=== PATIENT | female | born 1955 | race African-American/Black ===

== ENCOUNTER 2017-03-21 16:58 | Emergency (ER) | payer OTHER ==
[2017-03-21 17:08] VITALS: BMI 22.9
--- NOTE | 2017-03-21 17:48 | PDOC ---
Attending Attestation - Resident Resident Name: Tyrell Richardson - ED Attending Attestation I have performed the following: I have examined & evaluated the patient, The case was reviewed & discussed with the resident, I agree w/resident's findings & plan, Exceptions are as noted - HPI HPI: 03/21/17 17:48 61y F hx of htn (not on meds), cad s/o CABG on ASA, presents with epigastric pain x 2 days. Pt states the pain is sharp, intermittent and comes randomly. The pain is worse on the R upper abdome under her breast, denies any exertional worsening, sob, cough, hemoptysis, leg swelling, palpitatosn, lightheadedness, fever/chills, numbness/tingling/weakness. The pain is non radiating. I agre with exam as documented by dr. richardson - but cardiopulmonary exam unremarkble. The pt has point tenderness to her R costal margni under her R breast that is exactly reproducible by palpation. I do not think this is cadiac i nature. Pts labs reviewed pts vitals ntoed for hypertension - she staets she has not taken her bp meds for several years due to copay problems. I will give the pt her lisinopril ( which she was on previously)- but willr efer the pt back to her PMD to adjust her medications. return precautions were discussed - Physicial Exam PE: 03/21/17 19:48 see above - Medical Decision Making 03/21/17 19:48 see above
[2017-03-21] MEDS ORDERED: IBUPROFEN 600 MG TABLET (FP) PO ONE ×2 (18:14→18:41)
--- NOTE | 2017-03-21 18:15 | PDOC ---
History of Present Illness - General History Source: Patient Exam Limitations: No Limitations <Tyrell Richardson - Last Filed: 03/21/17 18:42> <Tono Hunter - Last Filed: 03/21/17 19:49> - General Chief Complaint: Chest Pain Stated Complaint: CHEST PAIN Time Seen by Provider: 03/21/17 17:25 - History of Present Illness Initial Comments: 03/21/17 18:42 The patient is a 60 year old female with significant past medical history of MN , CAD, s/p cardiac stents x2, hypertension, and hyperlipidemia who presents to the ED with 2 days of right sternal border chest pain. She describes her chest pain as non-radiating and 7/10. Also complains of headaches. Pain is increased during inspiration and sitting up from laying down. Patient denies diaphoresis, SOB, jaw pain, shoulder pain, arm pain, nausea, and vomiting. She states taking 2 81mg aspirin prior to arrival. She admits to not taking her lisinopril. It is notable that the patient presented with the exact same symptoms last year. Hasn't seen her pcp in 2 years, claims that when she took her blood pressure yesterday it was 230/100, and that she has had higher bp in the past The patient denies fever, chills, cough, palpitations, abdominal pain, and diarrhea. Allergies: NKDA Social History: No alcohol, tobacco, or drug use reported. Past Surgical History: s/p cardiac stents x2 03/21/17 18:53 (Tyrell Richardson) Past History - Past Medical History Cardiac Disorders: Yes (mi/stent) COPD: No HTN: Yes Hypercholesterolemia: Yes - Surgical History Cardiac Surgery: Yes (card stent x1) - Immunization History Immunization Up to Date: Yes - Suicide/Smoking/Psychosocial Hx Smoking Status: Yes Smoking History: Current every day smoker Have you smoked in the past 12 months: Yes Number of Cigarettes Smoked Daily: 3 Information on smoking cessation initiated: Yes 'Breaking Loose' booklet given: 03/21/17 Hx Alcohol Use: No Drug/Substance Use Hx: No Substance Use Type: None <Tyrell Richardson - Last Filed: 03/21/17 18:42> <Tono Hunter - Last Filed: 03/21/17 19:49> - Past Medical History Allergies/Adverse Reactions: Allergies Allergy/AdvReac Type Severity Reaction Status Date / Time No Known Allergies Allergy Verified 03/21/17 17:08 Home Medications: Ambulatory Orders Aspirin [ASA -] 81 mg PO DAILY 08/06/15 Lisinopril [Prinivil] 20 mg PO DAILY #30 tablet 03/21/17 Review of Systems - Review of Systems Able to Perform ROS?: Yes Is the patient limited Thai proficient: No Constitutional: No: Symptoms Reported, Chills, Diaphoresis, Fever, Loss of Appetite HEENTM: No: Symptoms Reported, Blurred Vision, Tearing, Recent change in vision , Double Vision Respiratory: No: Shortness of Breath, SOB with Exertion, SOB at Rest, Wheezing Cardiac (ROS): Yes: Chest Pain. No: Irregular Heart Rate, Lightheadedness, Palpitations, Syncope, Chest Tightness ABD/GI: No: Symptoms Reported : No: Symptoms Reported Musculoskeletal: No: Symptoms Reported Integumentary: No: Symptoms Reported Neurological: No: Symptoms reported All Other Systems: Reviewed and Negative <Tyrell Richardson - Last Filed: 03/21/17 18:42> *Physical Exam - Physical Exam General Appearance: Yes: Nourished, Appropriately Dressed. No: Apparent Distress HEENT: positive: EOMI, JORDAN Neck: negative: Tender Respiratory/Chest: positive: Chest Tender, Lungs Clear, Normal Breath Sounds. negative: Respiratory Distress, Plerual Rub Cardiovascular: positive: Regular Rhythm, Regular Rate, S1, S2 Gastrointestinal/Abdominal: positive: Normal Bowel Sounds, Flat. negative: Tender, Soft, Organomegaly Neurologic: positive: Fully Oriented, Alert, Normal Mood/Affect, Normal Response <Tyrell Richardson - Last Filed: 03/21/17 18:42> - Vital Signs Last Vital Signs Temp Pulse Resp BP Pulse Ox 98.1 F 78 20 182/107 100 03/21/17 19:43 03/21/17 19:43 03/21/17 19:43 03/21/17 19:43 03/21/17 19:43 ED Treatment Course - LABORATORY CBC & Chemistry Diagram: 03/21/17 18:38 03/21/17 18:38 <Tyrell Richardson - Last Filed: 03/21/17 18:42> - LABORATORY CBC & Chemistry Diagram: 03/21/17 18:38 03/21/17 18:38 <Tono Hunter - Last Filed: 03/21/17 19:49> - ADDITIONAL ORDERS Additional order review: Laboratory Results 03/21/17 03/21/17 18:38 18:38 Sodium 141 Potassium 3.9 Chloride 109 H Carbon Dioxide 27 Anion Gap 5 L BUN 15 Creatinine 1.1 H Creat Clearance w eGFR 50.67 Random Glucose 87 Calcium 9.0 Total Bilirubin 0.5 D AST 11 L ALT 12 Alkaline Phosphatase 99 Creatine Kinase 85 Troponin I < 0.02 Total Protein 8.1 Albumin 3.6 03/21/17 18:38 RBC 4.42 MCV 92.1 MCHC 33.7 RDW 14.1 MPV 7.1 L Neutrophils % 47.7 Lymphocytes % 41.7 H Monocytes % 7.8 Eosinophils % 2.0 Basophils % 0.8 - Medications Given in the ED: ED Medications Discontinued Medications Generic Name Dose Route Start Last Admin Trade Name Freq PRN Reason Stop Dose Admin Ibuprofen 600 mg 03/21/17 18:14 03/21/17 18:43 Motrin - PO 03/21/17 18:15 600 mg ONCE ONE Administration Medical Decision Making <Tyrell Richardson - Last Filed: 03/21/17 18:42> <Tono Hunter - Last Filed: 03/21/17 19:49> - Medical Decision Making 03/21/17 19:09 The patient is a 60 year old female with significant past medical history of MN , CAD, s/p cardiac stents x2, hypertension, and hyperlipidemia who presents to the ED with 2 days of reproducible sternal pain. 03/21/17 19:12 EKG: sinus rhythm Pain is exactly reproducible by palpation of the sternum cartilage. This is likely costochondritis, however I ordered cardiac panel. Chest x ray unchanged from last year. Patient signed out to Dr. Dooley. (Tyrell Richardson) *DC/Admit/Observation/Transfer <Tyrell Richardson - Last Filed: 03/21/17 18:42> - Discharge Dispostion Admit: No <Tono Hunter - Last Filed: 03/21/17 19:49> Diagnosis at time of Disposition: Costochondritis, acute Hypertension Qualifiers: Hypertension type: essential hypertension Qualified Code(s): I10 - Essential ( primary) hypertension - Discharge Dispostion Disposition: HOME Condition at time of disposition: Improved - Prescriptions Prescriptions: Lisinopril [Prinivil] 20 mg PO DAILY #30 tablet - Referrals Referrals: Smita Au [Primary Care Provider] - - Patient Instructions Printed Discharge Instructions: DI for Costochondritis Additional Instructions: I suspect your pain is due to inflammation of you cartilidge. Take ibupofen or tyelnol as neededf or pain. You were also notably hypertensive - please take your blood pressure medications as prescribed. If you pain worsen, you have any shortness of breath, the pain changes in nature , it gets worse when you are exerting yourself or you have Follow up with dr. Au in 3-4 days for reevaluation of your albina and your blood pressure. Print Language: WALLISIAN
[2017-03-21 18:42] LABS: BASOPHIL 0.8 % (0-2.0); MCHC 33.7 g/dl (32.0-36.0); MEAN CELL VOLUME 92.1 fl (80-96); MEAN PLT VOLUME 7.1 fl (7.5-11.1); NEUTROPHILS 47.7 % (42.8-82.8); PLATELET COUNT 266 K/MM3 (134-434); RDW 14.1 % (11.6-15.6); WHITE BLOOD COUNT 4.5 K/mm3 (4.0-10.0)
[2017-03-21 19:04] LABS: ALBUMIN 3.6 g/dl (3.4-5.0); ALK PHOS 99 U/L (45-117); ANION GAP 5 (8-16); BILIRUBIN,TOTAL 0.5 mg/dL (0.2-1.0); CO2 27 mmol/L (21-32); CREATININE 1.1 mg/dL (0.55-1.02); GLUCOSE,RANDOM 87 mg/dL (74-106); SGOT/AST 11 U/L (15-37); SGPT/ALT 12 U/L (12-78); TOT PROT 8.1 g/dl (6.4-8.2)
[2017-03-21 19:30] LABS: CPK 85 IU/L (26-192); TROPONIN I < 0.02 ng/ml (0.00-0.05)
[2017-03-21 19:44] VITALS: BP 182/107; PULSE 78; TEMP 98.1
[2017-03-21] MEDS ORDERED: LISINOPRIL 20 MG TABLET (FP) PO ONE (19:45)
[2017-03-21] MEDS ORDERED: LISINOPRIL 20 MG TABLET (FP) ONE (19:49)
--- NOTE | 2017-03-25 13:34 | EKG ---
Test Reason : Blood Pressure : / mmHG Vent. Rate : 095 BPM Atrial Rate : 095 BPM P-R Int : 140 ms QRS Dur : 076 ms QT Int : 364 ms P-R-T Axes : 061 060 061 degrees QTc Int : 457 ms NORMAL SINUS RHYTHM NORMAL ECG WHEN COMPARED WITH ECG OF 03-APR-2016 03:17, NO SIGNIFICANT CHANGE WAS FOUND Confirmed by RC LAFLEUR MD ([id number]) on 03/25/2017 1:34:09 PM Referred By: Confirmed By:RC LAFLEUR MD
== END 2017-03-21 20:03 | disposition home or self-care (01) ==
LOC: JER 16:58
DX: M94.0 Chondrocostal junction syndrome [Tietze] (principal); R51 Headache; I25.10 Atherosclerotic heart disease of native coronary artery without angina pectoris; I10 Essential (primary) hypertension; Z95.5 Presence of coronary angioplasty implant and graft; E78.5 Hyperlipidemia, unspecified; E78.00 Pure hypercholesterolemia, unspecified
CPT/HCPCS: 36415; 71010-TC; 80053; 82550; 84484; 85025; 93005; 93010; 99285-25

== ENCOUNTER 2017-06-30 08:39 | Inpatient (IN) | payer OTHER ==
--- NOTE | 2017-06-30 09:21 | PDOC ---
Attending Attestation - Resident Resident Name: Jim Mcadams - ED Attending Attestation I have performed the following: I have examined & evaluated the patient, The case was reviewed & discussed with the resident, I agree w/resident's findings & plan, Exceptions are as noted - HPI HPI: 07/01/17 12:42 Ms Sanchez is an 61 yo F h/o HLD, HTN, CAD s/p stent presenting with a complaint fo abdominal pain, nausea, vomiting and diarrhea She noted BRBPR after wiping No fevers or chills - Physicial Exam PE: 06/30/17 09:20 GENERAL: The patient is in no acute distress. HEAD: Normal EYES: PERRLA, EOMI, sclera anicteric, conjunctiva clear. ENT: Ears normal, nares patent, oropharynx clear without exudates. Moist mucous membranes. NECK: Normal range of motion, supple without lymphadenopathy, JVD, or masses. LUNGS: Breath sounds equal, clear to auscultation bilaterally. No wheezes, and no crackles. HEART:Regular rate and rhythm, normal S1 and S2 without murmur, rub or gallop. ABDOMEN: Soft, tender lower abdomen EXTREMITIES: Normal range of motion, no edema. NEUROLOGICAL: Cranial nerves II through XII grossly intact. Normal speech. No focal neurological deficits. MUSCULOSKELETAL: Back non-tender to palpation, no CVA tenderness SKIN: Warm, Dry, normal turgor, no rashes or lesions noted. - Medical Decision Making DD: colitis, gastroenteritis with bleeding hemorrhoid, perineal wound 06/30/17 14:11 EKG: Normal sinus rhythm, rate of 60 bpm, axis is normal, intervals are normal, no ST elevations or depressions, T waves upright 06/30/17 14:12 Laboratory Tests 06/30/17 06/30/17 06/30/17 10:05 10:05 10:14 WBC 5.2 Hgb 13.1 Hct 39.7 Plt Count 281 Neutrophils % 77.6 D Lymphocytes % 16.5 D BUN 14 Creatinine 1.0 Troponin I 0.02 Urine Blood Urine Nitrite Ur Leukocyte Esterase 06/30/17 10:47 WBC Hgb Hct Plt Count Neutrophils % Lymphocytes % BUN Creatinine Troponin I Urine Blood Negative Urine Nitrite Negative Ur Leukocyte Esterase Negative CT demonstrates colitis Will give abx Will admit given pt pain is not controlled Pt admitted to hospitalist Clinical Impression: colitis, initial presentation 07/01/17 12:42
[2017-06-30] MEDS ORDERED: ONDANSETRON 4 MG/2 ML VIAL IVPUSH ONE (09:32)
[2017-06-30] MEDS ORDERED: SODIUM CHLORIDE 1,000 ML IV STA (09:32)
--- NOTE | 2017-06-30 09:55 | PDOC ---
History of Present Illness - General Chief Complaint: Pain Stated Complaint: ABD PAIN, NAUSEA Time Seen by Provider: 06/30/17 09:07 History Source: Patient Exam Limitations: No Limitations - History of Present Illness Initial Comments: 06/30/17 09:50 Patient is 61F with history of AK and CAD s/p stenting, HLD and HLD here today complaining of suprapubic abdominal pain for the past 24 hours. Patient is also complaining of associated nausea, vomiting and diarrhea. She also states that she had a small amount of bright red blood from her rectum upon wiping after her last episode of diarrhea last night. Patient describes the pain as waxing and waning with episodes of sharp pain. Patient denies blood or bile in her vomit. Patient states that she is an active smoker and denies compliance with her medications, saying she takes none. Denies chest pain, shortness of breath, and weakness. Past History - Past Medical History Allergies/Adverse Reactions: Allergies Allergy/AdvReac Type Severity Reaction Status Date / Time No Known Allergies Allergy Verified 06/30/17 08:48 Home Medications: Ambulatory Orders Aspirin [ASA -] 81 mg PO DAILY 08/06/15 Cardiac Disorders: Yes (mi/stent) COPD: No HTN: Yes Hypercholesterolemia: Yes - Surgical History Cardiac Surgery: Yes (card stent x1) - Immunization History Immunization Up to Date: Yes - Suicide/Smoking/Psychosocial Hx Smoking Status: Yes Smoking History: Current every day smoker Have you smoked in the past 12 months: Yes Number of Cigarettes Smoked Daily: 3 Information on smoking cessation initiated: Yes 'Breaking Loose' booklet given: 06/30/17 Hx Alcohol Use: No Drug/Substance Use Hx: No Substance Use Type: None Review of Systems - Review of Systems Comments:: 06/30/17 09:54 GENERAL/CONSTITUTIONAL: No fever or chills. HEAD, EYES, EARS, NOSE AND THROAT: No change in vision. No sore throat. CARDIOVASCULAR: No chest pain or shortness of breath RESPIRATORY: No cough, wheezing, or hemoptysis. GASTROINTESTINAL: Positive for nausea, vomiting and diarrhea. Negative for constipation. GENITOURINARY: No dysuria, frequency, or change in urination. MUSCULOSKELETAL: No joint or muscle swelling or pain. No neck or back pain. SKIN: No rash NEUROLOGIC: No headache, vertigo, loss of consciousness, or change in strength/ sensation. ENDOCRINE: No increased thirst. No abnormal weight change ALLERGIC/IMMUNOLOGIC: No hives or skin allergy. *Physical Exam - Vital Signs Last Vital Signs Temp Pulse Resp BP Pulse Ox 97.6 F 64 18 173/95 100 06/30/17 08:49 06/30/17 08:49 06/30/17 08:49 06/30/17 08:49 06/30/17 08:49 - Physical Exam Comments: 06/30/17 09:55 GENERAL: Awake, alert, and fully oriented, on side moaning in pain, crying HEAD: No signs of trauma, normocephalic, atraumatic EYES: PERRLA, EOMI, sclera anicteric, conjunctiva clear ENT: Auricles normal inspection, hearing grossly normal, nares patent, oropharynx clear without exudates. LUNGS: No distress, speaks full sentences, clear to auscultation bilaterally HEART: Regular rate and rhythm, normal S1 and S2, no murmurs, rubs or gallops, peripheral pulses normal and equal bilaterally. ABDOMEN: Soft, pain not worsened with exam. No guarding, no rebound. No masses EXTREMITIES: Normal inspection, Normal range of motion, no edema. No clubbing or cyanosis. NEUROLOGICAL: Cranial nerves II through XII grossly intact. Normal speech, no focal sensorimotor deficits SKIN: Warm, Dry, normal turgor, no rashes or lesions noted. ED Treatment Course - LABORATORY CBC & Chemistry Diagram: 06/30/17 10:05 06/30/17 10:05 Medical Decision Making - Medical Decision Making 06/30/17 09:56 Patient is a 61F with history of AK and CAD s/p stenting, HTN and HLD here today with abdominal pain. Vital signs stable and normal. Aorta examined with US , measures about 2cm throughout. Normal. Gallbladder visualized, unremarkable. Differential diagnosis includes, but is not limited to: colitis, mesenteric ischemia, uti. Will evaluate with abdominal labs, ct w/ iv contrast. Will treat with pepcid, zofran and fluids. 06/30/17 16:36 Laboratory Tests 06/30/17 06/30/17 06/30/17 10:05 10:05 10:08 WBC 5.2 Hgb 13.1 Hct 39.7 Plt Count 281 Anion Gap 6 L Lactic Acid 0.9 Urine Nitrite Ur Leukocyte Esterase 06/30/17 10:47 WBC Hgb Hct Plt Count Anion Gap Lactic Acid Urine Nitrite Negative Ur Leukocyte Esterase Negative CT scan shows a colitis. Will admit to Dr Au. Paged, accepted admission. Started on levaquin and flagyl. *DC/Admit/Observation/Transfer Diagnosis at time of Disposition: Colitis - Discharge Dispostion Condition at time of disposition: Stable Admit: Yes - Referrals Referrals: Smita Au [Primary Care Provider] - - Patient Instructions - Post Discharge Activity
[2017-06-30] MEDS ORDERED: FAMOTIDINE 20 MG/50 ML IVPB 20 MG/50 ML MG IVPB ONE (10:00)
[2017-06-30] MEDS ORDERED: ONDANSETRON 4 MG/2 ML VIAL ONE (10:14)
[2017-06-30] MEDS ORDERED: RANITIDINE HCL 150 MG TABLET (FP) PO ONE (10:15)
[2017-06-30] MEDS ORDERED: RANITIDINE HCL 150 MG TABLET (FP) ONE (10:19)
[2017-06-30 10:23] LABS: BASO % 0.9 % (0-2.0); EOS % 0.1 % (0-4.5); HEMATOCRIT 39.7 % (32.4-45.2); HEMOGLOBIN 13.1 GM/dL (10.7-15.3); LYMPH % 16.5 % (8-40); MCH 31.2 pg (25.7-33.7); MCHC 32.9 g/dl (32.0-36.0); MEAN CELL VOLUME 94.9 fl (80-96); MEAN PLT VOLUME 7.4 fl (7.5-11.1); MONO % 4.9 % (3.8-10.2); NEUT % 77.6 % (42.8-82.8); PLATELET COUNT 281 K/MM3 (134-434); RBC 4.19 M/mm3 (3.60-5.2); RDW 13.7 % (11.6-15.6); WHITE BLOOD COUNT 5.2 K/mm3 (4.0-10.0)
[2017-06-30 11:17] LABS: URINE APPEARANCE CLEAR; URINE BILIRUBIN NEGATIVE (NEGATIVE); URINE BLOOD NEGATIVE (NEGATIVE); URINE COLOR LTYELLOW; URINE GLUCOSE (UA) NEGATIVE (NEGATIVE); URINE KETONE NEGATIVE (NEGATIVE); URINE LEUK ESTERASE NEGATIVE (NEGATIVE); URINE NITRITE NEGATIVE (NEGATIVE); URINE PROTEIN NEGATIVE (NEGATIVE); URINE UROBILINOGEN NEGATIVE mg/dL (0.2-1.0)
[2017-06-30 11:33] LABS: ALBUMIN 3.5 g/dl (3.4-5.0); ANION GAP 6 (8-16); BLOOD UREA NITROGEN 14 mg/dL (7-18); CALCIUM 9.4 mg/dL (8.5-10.1); CHLORIDE 103 mmol/L (98-107); CO2 30 mmol/L (21-32); GLUCOSE,RANDOM 111 mg/dL (74-106); LIPASE 89 U/L (73-393); SODIUM 139 mmol/L (136-145)
[2017-06-30 11:37] LABS: ALK PHOS 110 U/L (45-117); BILIRUBIN,TOTAL 0.6 mg/dL (0.2-1.0); SGPT/ALT 14 U/L (12-78); TOT PROT 8.4 g/dl (6.4-8.2)
[2017-06-30 11:42] LABS: SGOT/AST 18 U/L (15-37)
[2017-06-30] MEDS ORDERED: MORPHINE SULFATE 10 MG/1 ML *VIAL ONE (13:29)
--- NOTE | 2017-06-30 14:08 | EKG ---
Test Reason : Blood Pressure : / mmHG Vent. Rate : 060 BPM Atrial Rate : 060 BPM P-R Int : 154 ms QRS Dur : 080 ms QT Int : 432 ms P-R-T Axes : 049 066 064 degrees QTc Int : 432 ms NORMAL SINUS RHYTHM NORMAL ECG WHEN COMPARED WITH ECG OF 21-MAR-2017 18:14, VENT. RATE HAS DECREASED BY 29 BPM Confirmed by MD Jericho, Uriah ([id number]) on 06/30/2017 2:08:45 PM Referred By: Confirmed By:Uriah Echavarria MD
[2017-06-30] MEDS ORDERED: morphine CARPU-JECT 2 MG/1 ML DISP.SYRIN IVPUSH ONE (14:47)
--- NOTE | 2017-06-30 19:12 | CON.GI ---
Consult Consult Specialty:: Gastroenterology Referred by:: Dr Au Reason for Consultation:: Abdominal pain, diarrhea and bleeding - History of Present Illness Chief Complaint: Abdominal pain with diarrhea, nausea and vomiting History of Present Illness: 61F developed sudden onset crampy lower abdominal pain in the early afternoon yesterday. She subsequently developed loose brown diarrhea nausea and bilious vomiting. This morning she had a single episode of hematochezia. No subsequent bleeding. No previous bleeding. Her symptoms are improving. No recent foreign travel or usage of antibiotics. No previous GI history. Her father of colon cancer age 78. She has never had a colonoscopy. - History Source History Provided By: Patient Limitations to Obtaining History: No Limitations - Past Medical History Cardio/Vascular: Yes: CAD (2009 MS @ [facility] leading to an RCA stent) , HTN, Hyperlipdemia, MS ([address] 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 carcinoid) Review of Systems - Review of Systems Constitutional: reports: No Symptoms Eyes: reports: No Symptoms HENT: reports: No Symptoms Neck: reports: No Symptoms Cardiovascular: reports: No Symptoms Respiratory: reports: No Symptoms Gastrointestinal: reports: Abdominal Pain, Diarrhea, Nausea, Rectal Bleeding, Vomiting Genitourinary: reports: No Symptoms Musculoskeletal: reports: No Symptoms Integumentary: reports: No Symptoms Neurological: reports: No Symptoms Endocrine: reports: No Symptoms Physical Exam-GI Vital Signs: Vital Signs Temperature 99.1 F 06/30/17 18:16 Pulse Rate 70 06/30/17 18:16 Respiratory Rate 18 06/30/17 18:16 Blood Pressure 148/89 06/30/17 18:16 O2 Sat by Pulse Oximetry (%) 98 06/30/17 18:16 CBC,CMP WBC 5.2 K/mm3 (4.0-10.0) 06/30/17 10:05 RBC 4.19 M/mm3 (3.60-5.2) 06/30/17 10:05 Hgb 13.1 GM/dL (10.7-15.3) 06/30/17 10:05 Hct 39.7 % (32.4-45.2) 06/30/17 10:05 MCV 94.9 fl (80-96) 06/30/17 10:05 MCH 31.2 pg (25.7-33.7) 06/30/17 10:05 MCHC 32.9 g/dl (32.0-36.0) 06/30/17 10:05 RDW 13.7 % (11.6-15.6) 06/30/17 10:05 Plt Count 281 K/MM3 (134-434) 06/30/17 10:05 MPV 7.4 fl (7.5-11.1) L 06/30/17 10:05 Neutrophils % 77.6 % (42.8-82.8) D 06/30/17 10:05 Lymphocytes % 16.5 % (8-40) D 06/30/17 10:05 Monocytes % 4.9 % (3.8-10.2) 06/30/17 10:05 Eosinophils % 0.1 % (0-4.5) D 06/30/17 10:05 Basophils % 0.9 % (0-2.0) 06/30/17 10:05 Sodium 139 mmol/L (136-145) 06/30/17 10:05 Potassium 5.0 mmol/L (3.5-5.1) 06/30/17 10:05 Chloride 103 mmol/L (98-107) 06/30/17 10:05 Carbon Dioxide 30 mmol/L (21-32) 06/30/17 10:05 Anion Gap 6 (8-16) L 06/30/17 10:05 BUN 14 mg/dL (7-18) 06/30/17 10:05 Creatinine 1.0 mg/dL (0.55-1.02) 06/30/17 10:05 Creat Clearance w eGFR 56.56 (>60) 06/30/17 10:05 Random Glucose 111 mg/dL (74-106) H 06/30/17 10:05 Lactic Acid 0.9 mmol/L (0.0-2.0) 06/30/17 10:08 Calcium 9.4 mg/dL (8.5-10.1) 06/30/17 10:05 Total Bilirubin 0.6 mg/dL (0.2-1.0) 06/30/17 10:05 AST 18 U/L (15-37) 06/30/17 10:05 ALT 14 U/L (12-78) 06/30/17 10:05 Alkaline Phosphatase 110 U/L (45-117) 06/30/17 10:05 Creatine Kinase 112 IU/L (26-192) 06/30/17 10:14 Troponin I 0.02 ng/ml (0.00-0.05) 06/30/17 10:14 Total Protein 8.4 g/dl (6.4-8.2) H 06/30/17 10:05 Albumin 3.5 g/dl (3.4-5.0) 06/30/17 10:05 Lipase 89 U/L (73-393) 06/30/17 10:05 Constitutional: Yes: Well Nourished, Calm Eyes: Yes: Conjunctiva Clear HENT: Yes: Atraumatic Neck: Yes: Supple Cardiovascular: Yes: Regular Rate and Rhythm Respiratory: Yes: CTA Bilaterally Gastrointestinal Inspection: Yes: Scars (none) ...Auscultate: Yes: Hyperactive Bowel Sounds ...Palpate: Yes: Soft, Other (nontender) ...Percussion: Yes: Tympanitic ...Rectal Exam: Yes: Deferred (lying in ER corridor which precludes rectal exam) Extremities: Yes: WNL Edema: No Peripheral Pulses WNL: Yes Neurological: Yes: Alert, Oriented Labs: CBC, BMP 06/30/17 10:05 06/30/17 10:05 Imaging - Results Cat Scan: Report Reviewed (Kayyjosemanuel Bhatt Name: [facility] DEPARTMENT OF RADIOLOGY Phys: Jim Mcadams RESIDENT : [id number] Age: 61 Sex: F [facility] Acct: [id number] Loc: [facility] Exam Date: 06/30/17 Status: KATHIE Dhillon [id number] Unit Number: [id number] EXAM#: TYPE/EXAM: RESULT: CT/ABDOMEN PELVIS CT WITH CONTR INDICATION: Diffuse abdominal pain. Diarrhea. Emesis. TECHNIQUE: CT of the abdomen and pelvis without oral contrast, following intravenous demonstration of 96 mL of Omnipaque 350 contrast. COMPARISON: 05/19/2004 CT abdomen and pelvis. FINDINGS: There is minimal subpleural reticulation/scarring in the lateral segment of the right middle lobe. There is mild subpleural groundglass in the left lung base which is nonspecific, but may be related to mild scarring. The heart is not enlarged. Normal liver size and contour. A single punctate hypodense lesion in the dome of the liver (image 9 of series 3), is too small to characterize. The gallbladder is contracted. There is no CT evidence of acute cholecystitis. There is no biliary ductal dilatation. The pancreas is unremarkable. Normal size spleen, with no focal lesions. There is a 1.5 x 1.2 cm indeterminant inhomogeneously enhancing nodule in the medial limb of the left adrenal gland, not significantly changed in size since 05/20/2004, allowing for differences in technique There is no nodule or mass in the right adrenal gland. Normal size kidneys with symmetric enhancement. There is no hydroureteronephrosis. Normal caliber abdominal aorta. There is mild mixed noncalcified and calcified atheromatous plaque along the infrarenal abdominal aorta and bilateral common femoral arteries. There is also mild calcific atherosclerosis along the common iliac and internal iliac arteries. No pathologically enlarged lymph nodes by CT size criteria within the abdomen or pelvis. Nearly the entire colon is underdistended, limiting evaluation. Despite underdistention, annular wall thickening with pericolonic fat stranding and submucosal hypoattenuation suggesting wall edema is noted within the distal transverse, descending and proximal sigmoid colon. Cannot exclude wall thickening in the in the remainder of the colon. There is a small hiatal hernia. The stomach is underdistended , which limits evaluation. Large and small bowel is of normal caliber with no evidence of obstruction. There is no evidence of acute diverticulitis. A normal appearing appendix is visualized. There is no free intraperitoneal air. No ascites or drainable collection within the abdomen or pelvis. The urinary bladder is moderately well distended with no significant wall thickening. The uterus is surgically absent. The visualized osseous structures are intact with no aggressive appearing lesions. IMPRESSION: 1. Long segment colonic wall thickening as described above, compatible with a nonspecific infectious or inflammatory colitis. 2. A 1.5 x 1.2 cm nodule in the left adrenal gland is not significantly changed in size from 2004, therefore most likely an adenoma. Reported By: Tung Tejeda DO 06/30/17 1229 Jim Mcadams Technologist: Zohaib Aguilar Transcribed Date/Time : 06/30/179 Senior Ruby Developer: Tung Tejeda DO Printed Date/Time: By: Signed by: Tung Tejeda Signed on: 30-Jun-2017 12:29), Image Reviewed (thickened distal transverse, desneding and sigmoid colon suggests ischemic colitis) Problem List - Problems (1) Diarrhea Assessment/Plan: The combination of crampy lower abdominal pain with diarrhea and bleeding with CT revealing colon wall thickening in the watershed distribution suggests an ischemic colitis. An infectious etiology cannot be excluded. Given her father's history an underlying colon cancer needs to be excluded. Stools will be screened for pathogens. Clear liquids will be attempted. I have discussed the need for a colonoscopy and discussed the procedure in detail including informing [place] of the potential for such complications as perforation and hemorrhage that could lead to surgery and transfusions. She has orally consented. I have scheduled it for 07/03. Code(s): R19.7 - DIARRHEA, UNSPECIFIED (2) Hematochezia Assessment/Plan: Suggest ischemic colitis but can occur with infectious colitis, particularly Shigella. May be hemorrhoids aggravated by diarrhea. Code(s): K92.1 - MELENA (3) Nausea & vomiting Assessment/Plan: Related to the colitis Code(s): R11.2 - NAUSEA WITH VOMITING, UNSPECIFIED (4) Family history of colon cancer in father Code(s): Z80.0 - FAMILY HISTORY OF MALIGNANT NEOPLASM OF DIGESTIVE ORGANS (5) Family history of GI tract cancer Code(s): Z80.0 - FAMILY HISTORY OF MALIGNANT NEOPLASM OF DIGESTIVE ORGANS (6) Maternal family history gastrointestinal disorder Assessment/Plan: Given small bowel origin and age a carcinoid is suspected. A\Given her young age a polyposis syndrome is possible. A small bowel lymphoma and sarcoma cannot be excluded Code(s): Z83.79 - FAMILY HISTORY OF OTHER DISEASES OF THE DIGESTIVE SYSTEM (7) Abdominal pain Code(s): R10.9 - UNSPECIFIED ABDOMINAL PAIN
[2017-06-30] MEDS ORDERED: ACETAMINOPHEN 325 MG TABLET (FP) PO PRN (19:39)
[2017-06-30] MEDS: DEXTROSE 5%-0.45% SALINE 1,000 ML IV SCH (20:06)
[2017-06-30 20:46] VITALS: BMI 24.6
[2017-06-30] MEDS ORDERED: ONDANSETRON 4 MG/2 ML VIAL IVPB PRN (23:25)
[2017-06-30] MEDS ORDERED: MORPHINE SULFATE 10 MG/1 ML *VIAL IVPUSH PRN (23:25)
[2017-07-01] MEDS: DEXTROSE 5%-0.45% SALINE 1,000 ML IV SCH (05:15)
[2017-07-01 07:34] LABS: BASO % 0.4 % (0-2.0); EOS % 1.7 % (0-4.5); HEMOGLOBIN 12.1 GM/dL (10.7-15.3); LYMPH % 32.2 % (8-40); MCHC 32.7 g/dl (32.0-36.0); MEAN CELL VOLUME 94.8 fl (80-96); MEAN PLT VOLUME 7.3 fl (7.5-11.1); MONO % 10.4 % (3.8-10.2); NEUT % 55.3 % (42.8-82.8); PLATELET COUNT 251 K/MM3 (134-434); RDW 13.6 % (11.6-15.6); WHITE BLOOD COUNT 4.9 K/mm3 (4.0-10.0)
[2017-07-01 07:52] LABS: INR 1.16 (0.82-1.09); PROTHROMBIN TIME (PATIENT) 13.1 SEC (9.98-11.88)
[2017-07-01 07:56] LABS: ALBUMIN 2.9 g/dl (3.4-5.0); ANION GAP 5 (8-16); BLOOD UREA NITROGEN 8 mg/dL (7-18); CALCIUM 7.8 mg/dL (8.5-10.1); CHLORIDE 107 mmol/L (98-107); CO2 29 mmol/L (21-32); GLUCOSE,RANDOM 100 mg/dL (74-106); POTASSIUM 3.7 mmol/L (3.5-5.1); SGOT/AST 11 U/L (15-37); SGPT/ALT 10 U/L (12-78); SODIUM 141 mmol/L (136-145)
[2017-07-01 08:00] LABS: ALK PHOS 86 U/L (45-117); BILIRUBIN,TOTAL 0.8 mg/dL (0.2-1.0); TOT PROT 6.8 g/dl (6.4-8.2)
--- NOTE | 2017-07-01 10:01 | PN ---
GI Progress Note Subjective: GI Note: Diarrhea and pain have resolved. No bleeding. Tolerating liquids. Hemoglobin stable. - Objective Vital Signs: Vital Signs Temperature 98.7 F 07/01/17 07:03 Pulse Rate 72 07/01/17 07:03 Respiratory Rate 20 07/01/17 07:03 Blood Pressure 134/76 07/01/17 07:03 O2 Sat by Pulse Oximetry (%) 98 06/30/17 21:00 Laboratory Tests 06/30/17 07/01/17 10:05 06:00 WBC 5.2 4.9 Hgb 13.1 12.1 Hct 39.7 Constitutional: No Distress ...Auscultate: Yes: Normoactive Bowel Sounds ...Palpate: Yes: Soft, Other (nontender) Labs: CBC, BMP 07/01/17 06:00 07/01/17 06:00 INR, PTT INR 1.16 (0.82-1.09) H 07/01/17 06:00 Problem List - Problems (1) Diarrhea Assessment/Plan: Ischemic colitis appears more likely than infectious colitis. Will allow full liquids. Will prep tomorrow for colonoscopy on 06/02. Discussed with Dr. Au. Code(s): R19.7 - DIARRHEA, UNSPECIFIED (2) Hematochezia Code(s): K92.1 - MELENA (3) Nausea & vomiting Code(s): R11.2 - NAUSEA WITH VOMITING, UNSPECIFIED (4) Family history of colon cancer in father Code(s): Z80.0 - FAMILY HISTORY OF MALIGNANT NEOPLASM OF DIGESTIVE ORGANS (5) Family history of GI tract cancer Code(s): Z80.0 - FAMILY HISTORY OF MALIGNANT NEOPLASM OF DIGESTIVE ORGANS (6) Maternal family history gastrointestinal disorder Code(s): Z83.79 - FAMILY HISTORY OF OTHER DISEASES OF THE DIGESTIVE SYSTEM (7) Abdominal pain Code(s): R10.9 - UNSPECIFIED ABDOMINAL PAIN
--- NOTE | 2017-07-01 11:13 | HP ---
Admitting History and Physical - Primary Care Physician PCP: Smita Au - Admission Chief Complaint: abdominal pain, bloody diarrhea History of Present Illness: Patient is 61F with history of MN and CAD s/p stenting, HLD and smoker here today complaining of abdominal pain for the past 24 hours. Patient is also complaining of associated nausea, vomiting and diarrhea. She also states that she had a small amount of bright red blood from her rectum upon wiping after her last episode of diarrhea last night. Patient describes the pain as waxing and waning with episodes of sharp pain. Patient denies blood or bile in her vomit. Patient states that she is an active smoker and denies compliance with her medications, saying she takes none. Denies chest pain, shortness of breath, and weakness. pt said she saw cardio dr FONTANA in office over the past year but she did not come to see me in over 1 year, d/w pt compliance; also did not go for mammograms, pap smear, RN CLINICAL COORDINATOR eval or chest CT (smoker) - to have them done outpt strongly advised stop smoking - said she cut down a lot now 3 cigs a day; advised stop completely History Source: Patient Limitations to Obtaining History: No Limitations - Past Medical History Cardiovascular: Yes: CAD (2009 MN @ [facility] leading to an RCA stent), HTN, Hyperlipdemia, MN (2009 [facility]) - Past Surgical History Past Surgical History: Yes: Hysterectomy (Transvaginal JULIÁN for fibroids), Stent (RCA 2009) - Smoking History Smoking history: Current every day smoker Have you smoked in the past 12 months: Yes Aproximately how many cigarettes per day: 3 - Alcohol/Substance Use Hx Alcohol Use: No History of Substance Use: reports: None - Social History Usual Living Arrangement: Yes: Alone ADL: Independent 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 carcinoid) Review of Systems - Review of Systems Constitutional: denies: Chills, Fever, Lethargy Eyes: denies: Blind Spots, Blurred Vision HENT: denies: Epistaxis Neck: denies: Stiffness, Tenderness Cardiovascular: denies: Chest Pain, Shortness of Breath Respiratory: denies: Cough, Hemoptysis, SOB Gastrointestinal: reports: Abdominal Pain, Diarrhea, Nausea, Rectal Bleeding. denies: Bloating, Constipation, Melena, Vomiting, Vomiting Blood Genitourinary: denies: Dysuria, Flank Pain Musculoskeletal: denies: Back Pain, Joint Swelling Integumentary: denies: Eczema, Rash Neurological: denies: Change in LOC, Change in Speech, Confusion, Dizziness Hematology/Lymphatic: denies: Easily Bruised, Excessive Bleeding Psychiatric: denies: Altered Sleep Pattern, Anxiety, Depression Physical Examination Vital Signs: Vital Signs Temperature 98.7 F 07/01/17 07:03 Pulse Rate 72 07/01/17 07:03 Respiratory Rate 20 07/01/17 07:03 Blood Pressure 134/76 07/01/17 07:03 O2 Sat by Pulse Oximetry (%) 98 06/30/17 21:00 Constitutional: Yes: No Distress, Calm Eyes: Yes: Conjunctiva Clear HENT: Yes: Atraumatic Neck: Yes: Supple Cardiovascular: Yes: Regular Rate and Rhythm Respiratory: Yes: CTA Bilaterally Gastrointestinal: Yes: Soft, Tenderness (mild generalized tenderness). No: Distention Renal/: No: CVA Tenderness - Left, CVA Tenderness - Right Musculoskeletal: No: Joint Stiffness, Joint Swelling Extremities: No: Cold, Cool, Cyanosis Edema: No Integumentary: No: Rash, Skin Tear, Venous Stasis Changes Neurological: Yes: WNL, Alert, Oriented ...Motor Strength: WNL Psychiatric: Yes: WNL, Alert, Oriented. No: Agitated, Suicidal Ideation Labs: CBC, BMP 07/01/17 06:00 07/01/17 06:00 Imaging - Results Chest X-ray: Report Reviewed Other: Report Reviewed Assessment/Plan Patient is 61F with history of MN and CAD s/p stenting, HLD smoker here today complaining of abdominal pain for the past 24 hours, nausea, vomiting and bloody diarrhea admit to INPT Clear fluids po IV antibitoics GI eval hold ASA; no sq heparin for DVT PFX b/o GI bleed; pt is ambulatory; TEDs and SCDs ordered advised stop smoking cardio eval for preop colonoscopy falls PFX
--- NOTE | 2017-07-01 11:44 | CON.CARD ---
Consult Consult Specialty:: Cardiology Referred by:: Smita Au Reason for Consultation:: Pre-procedure cardiovascular evaluation - History of Present Illness Chief Complaint: Abd pain, diarrhea History of Present Illness: 61F h/o HTN, hyperlipidemia, CAD, OR, s/p PCI (stent), angina pectoris in 2009, tobacco use, developed sudden onset crampy lower abdominal pain, loose brown diarrhea, nausea and bilious vomiting and later a single episode of hematochezia without subsequent bleeding. No previous bleeding. Her symptoms are improving. No recent foreign travel or usage of antibiotics. She has never had a colonoscopy. She denies cardiovascular symptoms including chest pain, dyspnea, near or true syncope, palpitations, orthopnea, PND or LE edema. Noncomplaint with medications and follow-up. - History Source History Provided By: Patient Limitations to Obtaining History: No Limitations - Past Medical History Cardio/Vascular: Yes: CAD (2009 OR @ [facility] leading to an RCA stent) , HTN, Hyperlipdemia, OR (2009 [facility]) - Past Surgical History Past Surgical History: Yes: Hysterectomy (Transvaginal JULIÁN for fibroids), Stent (RCA 2009) - Alcohol/Substance Use Hx Alcohol Use: No History of Substance Use: reports: None - Smoking History Smoking history: Current every day smoker Have you smoked in the past 12 months: Yes Aproximately how many cigarettes per day: 3 - Social History Usual Living Arrangement: Alone ADL: Independent 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 carcinoid) Review of Systems - Review of Systems Gastrointestinal: reports: Abdominal Pain, Diarrhea, Rectal Bleeding, Vomiting Vital Signs: Vital Signs Temperature 98.7 F 07/01/17 07:03 Pulse Rate 72 07/01/17 07:03 Respiratory Rate 20 07/01/17 07:03 Blood Pressure 134/76 07/01/17 07:03 O2 Sat by Pulse Oximetry (%) 98 06/30/17 21:00 Constitutional: Yes: No Distress, Calm Neck: Yes: Supple Respiratory: Yes: Regular, CTA Bilaterally Gastrointestinal: Yes: Soft, Hypoactive Bowel Sounds Cardiovascular: Yes: Regular Rate and Rhythm JVD: No Carotid Bruit: No Heart Sounds: Yes: S1, S2 Murmur: Yes: Systolic Murmur, Grade 1 Edema: No - Other Data Labs, Other Data: CBC, BMP 07/01/17 06:00 07/01/17 06:00 INR, PTT INR 1.16 (0.82-1.09) H 07/01/17 06:00 Troponin, BNP 06/30/17 10:14 Troponin I 0.02 Troponin, BNP 06/30/17 10:14 Troponin I 0.02 NSR @ [address]-T changes Imaging - Results Cat Scan: Report Reviewed (Distal transverse to sigmoid colitis) Problem List - Problems (1) Status post coronary artery stent placement Code(s): Z95.5 - PRESENCE OF CORONARY ANGIOPLASTY IMPLANT AND GRAFT (2) Noncompliance with medication regimen Code(s): Z91.14 - PATIENT'S OTHER NONCOMPLIANCE WITH MEDICATION REGIMEN (3) Colitis Code(s): K52.9 - NONINFECTIVE GASTROENTERITIS AND COLITIS, UNSPECIFIED (4) Hematochezia Code(s): K92.1 - MELENA (5) ASHD (arteriosclerotic heart disease) Code(s): I25.10 - ATHSCL HEART DISEASE OF [place] CORONARY ARTERY W/O ANG PCTRS (6) Hyperlipidemia Code(s): E78.5 - HYPERLIPIDEMIA, UNSPECIFIED Qualifiers: Hyperlipidemia type: pure hypercholesterolemia Qualified Code(s): E78.00 - Pure hypercholesterolemia, unspecified; E78.0 - Pure hypercholesterolemia (7) Hypertension Code(s): I10 - ESSENTIAL (PRIMARY) HYPERTENSION Qualifiers: Hypertension type: essential hypertension Qualified Code(s): I10 - Essential (primary) hypertension (8) Myocardial infarct, old Code(s): I25.2 - OLD MYOCARDIAL INFARCTION Assessment/Plan 02/08/2014 Echo: Normal biventricular size and fxn, tr-mild MR 02/09/2014 MPI: No ischemia, LVEF 61% 1. Pre-procedure cardiovascular evaluation pre-colonoscopy 2. Likely ischemic colitis, r/o infectious 3. CAD s/p PCI(stent), angina pectoris, no ischemia on MPI 4. Tobacco abuse 5. HTN 6. Hypercholesterolemia PLAN: 1. Given absence of symptoms of acute coronary syndrome, decompensated CHF or malignant arrhythmia, may proceed with colonoscopy without further testing, resume ASA 81 qd once post-procedure hemostasis achieved 2. Resume CV medications including Atorvastatin 20 qhs, Carvedilol 6.25 bid, Lisinopril 20 qd as hemodynamics tolerate 3. Full liquid diet, empiric abx, await colonoscopy 4. Emphasized importance of f/u with Dr. Butler, emphasized importance of compliance with medication, diet,and smoking cessation 5. Thank you for consultative opportunity
[2017-07-01] MEDS: CARVEDILOL 6.25 MG TABLET (FP) PO SCH ×2 (13:04→21:40)
[2017-07-01] MEDS: ATORVASTATIN CA 20 MG TABLET (FP) PO SCH (21:40)
[2017-07-02] MEDS: DEXTROSE 5%-0.45% SALINE 1,000 ML IV SCH ×3 (01:26→19:45)
[2017-07-02 06:06] LABS: SERUM IRON SATURATION 38 % (15-55); TOTAL IRON BINDING CAPACITY 228 ug/dL (250-450); UIBC 142 ug/dL (131-425)
--- NOTE | 2017-07-02 07:30 | PN ---
Progress Note, Physician Chief Complaint: in bed feels better less abdominal pain no bleed; no CP/SOB consults and tests d/w pt - Current Medication List Current Medications: Active Medications Acetaminophen (Tylenol -) 650 mg PO Q4H PRN PRN Reason: FEVER Atorvastatin Calcium (Lipitor -) 20 mg PO HS [facility] Last Admin: 07/01/17 21:40 Dose: 20 mg Bisacodyl (Dulcolax -) 20 mg PO ONCE ONE Stop: 07/02/17 18:01 Carvedilol (Coreg -) 6.25 mg PO BID [facility] Last Admin: 07/01/17 21:40 Dose: 6.25 mg Dextrose/Sodium Chloride (D5-1/2ns -) 1,000 mls @ 125 mls/hr IV ASDIR [facility] Last Admin: 07/02/17 03:21 Dose: 125 mls/hr Metronidazole (Flagyl 500mg Premixed Ivpb -) 500 mg in 100 mls @ 100 mls/hr IVPB Q8H-IV [facility] Last Admin: 07/02/17 01:14 Dose: 100 mls/hr Levofloxacin (Levaquin 500 Mg Premixed Ivpb -) 500 mg in 100 mls @ 100 mls/hr IVPB DAILY@0800 [facility] Last Admin: 07/01/17 08:56 Dose: 100 mls/hr Morphine Sulfate (Morphine Injection -) 1 mg IVPUSH Q6H PRN PRN Reason: PAIN LEVEL 7 - 10 - Objective Vital Signs: Vital Signs Temperature 98.3 F 07/02/17 06:00 Pulse Rate 64 07/02/17 06:00 Respiratory Rate 18 07/02/17 06:00 Blood Pressure 138/88 07/02/17 06:00 O2 Sat by Pulse Oximetry (%) 98 06/30/17 21:00 Constitutional: Yes: No Distress, Calm Eyes: Yes: Conjunctiva Clear HENT: Yes: Atraumatic Neck: Yes: Supple Cardiovascular: Yes: Regular Rate and Rhythm Respiratory: Yes: CTA Bilaterally Gastrointestinal: Yes: Soft. No: Distention Genitourinary: No: CVA Tenderness - Left, CVA Tenderness - Right, Hematuria Musculoskeletal: No: Joint Stiffness, Joint Swelling Extremities: No: Cold, Cool, Cyanosis Edema: No Integumentary: No: Rash, Skin Tear, Venous Stasis Changes Neurological: Yes: WNL, Alert, Oriented ...Motor Strength: WNL Psychiatric: Yes: WNL, Alert, Oriented. No: Agitated, Suicidal Ideation Labs: INR, PTT INR 1.16 (0.82-1.09) H 07/01/17 06:00 - ....Imaging Other: Report Reviewed Assessment/Plan Patient is 61F with history of [place] and CAD s/p stenting, HLD smoker here today complaining of abdominal pain for the past 24 hours, nausea, vomiting and bloody diarrhea admit to INPT Clear fluids po IV antibitoics GI eval hold ASA; no sq heparin for DVT PFX b/o GI bleed; pt is ambulatory; TEDs and SCDs ordered advised stop smoking; given h/o smoking and noncompliance will check chest CT r/o early malignancy; pt advised f/u with pulm outpt cardio eval for preop colonoscopy falls PFX
[2017-07-02 07:37] LABS: BASO % 0.8 % (0-2.0); EOS % 4.2 % (0-4.5); LYMPH % 34.7 % (8-40); MCH 30.9 pg (25.7-33.7); MCHC 32.4 g/dl (32.0-36.0); MEAN CELL VOLUME 95.1 fl (80-96); MEAN PLT VOLUME 7.4 fl (7.5-11.1); MONO % 12.8 % (3.8-10.2); NEUT % 47.5 % (42.8-82.8); PLATELET COUNT 238 K/MM3 (134-434); RBC 3.89 M/mm3 (3.60-5.2); RDW 13.5 % (11.6-15.6); WHITE BLOOD COUNT 4.2 K/mm3 (4.0-10.0)
[2017-07-02 08:05] LABS: ANION GAP 6 (8-16); BLOOD UREA NITROGEN 7 mg/dL (7-18); CHLORIDE 109 mmol/L (98-107); CO2 28 mmol/L (21-32); GLUCOSE,RANDOM 97 mg/dL (74-106); POTASSIUM 3.8 mmol/L (3.5-5.1); SGOT/AST 9 U/L (15-37); SGPT/ALT 10 U/L (12-78); SODIUM 143 mmol/L (136-145)
[2017-07-02 08:08] LABS: ALBUMIN 2.8 g/dl (3.4-5.0); ALK PHOS 82 U/L (45-117); BILIRUBIN,TOTAL 0.7 mg/dL (0.2-1.0); CREATININE 1.1 mg/dL (0.55-1.02); TOT PROT 6.5 g/dl (6.4-8.2)
[2017-07-02] MEDS ORDERED: PEG3350/SOD SULF,BICARB,CL/KCL 4,000 ML SOLN.RECON PO ONE (09:00)
[2017-07-02] MEDS: CARVEDILOL 6.25 MG TABLET (FP) PO SCH ×2 (10:43→21:49)
[2017-07-02] MEDS ORDERED: BISACODYL 5 MG TABLET.DR (FP) PO ONE (18:00)
[2017-07-02] MEDS: ATORVASTATIN CA 20 MG TABLET (FP) PO SCH (21:49)
[2017-07-03] MEDS: DEXTROSE 5%-0.45% SALINE 1,000 ML IV SCH (06:09)
--- NOTE | 2017-07-03 06:54 | PN ---
Progress Note, Physician Chief Complaint: see DC summary done today - Current Medication List Current Medications: Active Medications Acetaminophen (Tylenol -) 650 mg PO Q4H PRN PRN Reason: FEVER Atorvastatin Calcium (Lipitor -) 20 mg PO HS [facility] Last Admin: 07/02/17 21:49 Dose: 20 mg Carvedilol (Coreg -) 6.25 mg PO BID [facility] Last Admin: 07/02/17 21:49 Dose: 6.25 mg Dextrose/Sodium Chloride (D5-1/2ns -) 1,000 mls @ 125 mls/hr IV ASDIR [facility] Last Admin: 07/03/17 06:09 Dose: 125 mls/hr Metronidazole (Flagyl 500mg Premixed Ivpb -) 500 mg in 100 mls @ 100 mls/hr IVPB Q8H-IV [facility] Last Admin: 07/03/17 01:35 Dose: 100 mls/hr Levofloxacin (Levaquin 500 Mg Premixed Ivpb -) 500 mg in 100 mls @ 100 mls/hr IVPB DAILY@0800 [facility] Last Admin: 07/02/17 10:43 Dose: 100 mls/hr Morphine Sulfate (Morphine Injection -) 1 mg IVPUSH Q6H PRN PRN Reason: PAIN LEVEL 7 - 10 - Objective Vital Signs: Vital Signs Temperature 98.5 F 07/03/17 06:00 Pulse Rate 62 07/03/17 06:00 Respiratory Rate 18 07/03/17 06:00 Blood Pressure 123/74 07/03/17 06:00 O2 Sat by Pulse Oximetry (%) 98 06/30/17 21:00 Labs: CBC, BMP 07/02/17 06:00 07/02/17 06:00 INR, PTT INR 1.16 (0.82-1.09) H 07/01/17 06:00
[2017-07-03 07:52] LABS: CHLORIDE 107 mmol/L (98-107); POTASSIUM 3.7 mmol/L (3.5-5.1); SODIUM 141 mmol/L (136-145)
[2017-07-03 07:56] LABS: BASO % 0.6 % (0-2.0); EOS % 3.5 % (0-4.5); HEMATOCRIT 39.6 % (32.4-45.2); HEMOGLOBIN 12.8 GM/dL (10.7-15.3); LYMPH % 31.1 % (8-40); MCHC 32.4 g/dl (32.0-36.0); MEAN CELL VOLUME 95.5 fl (80-96); MEAN PLT VOLUME 7.7 fl (7.5-11.1); MONO % 10.6 % (3.8-10.2); NEUT % 54.2 % (42.8-82.8); PLATELET COUNT 259 K/MM3 (134-434); RBC 4.15 M/mm3 (3.60-5.2); RDW 13.9 % (11.6-15.6); WHITE BLOOD COUNT 5.1 K/mm3 (4.0-10.0)
[2017-07-03 07:59] LABS: ALK PHOS 86 U/L (45-117); ANION GAP 10 (8-16); BILIRUBIN,TOTAL 0.8 mg/dL (0.2-1.0); BLOOD UREA NITROGEN 7 mg/dL (7-18); CO2 24 mmol/L (21-32); CREATININE 1.1 mg/dL (0.55-1.02); GLUCOSE,RANDOM 96 mg/dL (74-106); SGOT/AST 11 U/L (15-37); SGPT/ALT 6 U/L (12-78); TOT PROT 6.9 g/dl (6.4-8.2)
[2017-07-03] MEDS ORDERED: PROPOFOL 20 ML ONE ×2 (09:54)
--- NOTE | 2017-07-03 10:51 | PN ---
Progress Note (short form) - Note Progress Note: GI Procedure NOte: Please see colonoscopy report. REsolving ischemic colitis was noted in the descending colon. Polyps were removed and diverticuli were noted. Solid diet for lunch. If tolerated can discharge. Discussed with Dr Au. Problem List - Problems (1) Diarrhea Code(s): R19.7 - DIARRHEA, UNSPECIFIED (2) Hematochezia Code(s): K92.1 - MELENA (3) Nausea & vomiting Code(s): R11.2 - NAUSEA WITH VOMITING, UNSPECIFIED (4) Family history of colon cancer in father Code(s): Z80.0 - FAMILY HISTORY OF MALIGNANT NEOPLASM OF DIGESTIVE ORGANS (5) Family history of GI tract cancer Code(s): Z80.0 - FAMILY HISTORY OF MALIGNANT NEOPLASM OF DIGESTIVE ORGANS (6) Maternal family history gastrointestinal disorder Code(s): Z83.79 - FAMILY HISTORY OF OTHER DISEASES OF THE DIGESTIVE SYSTEM (7) Abdominal pain Code(s): R10.9 - UNSPECIFIED ABDOMINAL PAIN
--- NOTE | 2017-07-03 11:18 | CON.PULM ---
Consult Consult Specialty:: PULMONARY Referred by:: REY Reason for Consultation:: ABN CT CHEST - History of Present Illness Chief Complaint: ABD PAIN History of Present Illness: Patient is 61F with history of OR and CAD s/p stenting, HLD and HLD came to ER complaining of suprapubic abdominal pain for the past 24 hours. Patient is also complaining of associated nausea, vomiting and diarrhea. She also states that she had a small amount of bright red blood from her rectum upon wiping after her last episode of diarrhea last night. Patient describes the pain as waxing and waning with episodes of sharp pain. Patient denies blood or bile in her vomit. Patient states that she is an active smoker and denies compliance with her medications, saying she takes none. Denies chest pain, shortness of breath, and weakness. Patient had colonoscopy which revealed resolving ischemic colitis in the descending colon, polyps,diverticulosis. We have been asked to eval for an abn CT chest. Pt is an active smoker. 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 Cardio/Vascular: Yes: CAD (2009 OR @ [facility] leading to an RCA stent) , HTN, Hyperlipdemia, OR (2009 [facility]) Pulmonary: Yes: COPD Gastrointestinal: Yes: Diverticulosis, Other (ischemic colitis) Hepatobiliary: No: Cirrhosis Renal/: No: Renal Failure Reproductive: Yes: Postmenopausal Heme/Onc: No: Anemia - Past Surgical History Past Surgical History: Yes: Hysterectomy (Transvaginal JULIÁN for fibroids), Stent (RCA 2009) - Alcohol/Substance Use Hx Alcohol Use: No History of Substance Use: reports: None - Smoking History Smoking history: Current every day smoker Have you smoked in the past 12 months: Yes Aproximately how many cigarettes per day: 3 - Social History Usual Living Arrangement: Alone ADL: Independent 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 carcinoid) Review of Systems - Review of Systems Cardiovascular: denies: Chest Pain Respiratory: reports: SOB on Exertion Gastrointestinal: reports: Abdominal Pain, Bloating, Diarrhea, Rectal Bleeding Physical Exam Vital Sings: Vital Signs Temperature 98.0 F 07/03/17 10:30 Pulse Rate 71 07/03/17 11:00 Respiratory Rate 21 07/03/17 11:00 Blood Pressure 142/71 07/03/17 11:00 O2 Sat by Pulse Oximetry (%) 100 07/03/17 11:00 Constitutional: Yes: Calm Eyes: Yes: EOM Intact HENT: Yes: Normocephalic Neck: Yes: Trachea Midline Cardiovascular: Yes: Regular Rate and Rhythm, S1, S2 Respiratory: Yes: CTA Bilaterally Gastrointestinal: Yes: Soft Edema: No Neurological: Yes: Alert Labs: CBC, BMP 07/03/17 06:00 07/03/17 06:00 rest reviewed Imaging - Results Chest X-ray: Report Reviewed, Image Reviewed Cat Scan: Report Reviewed, Image Reviewed Problem List - Problems (1) COPD (chronic obstructive pulmonary disease) Code(s): J44.9 - CHRONIC OBSTRUCTIVE PULMONARY DISEASE, UNSPECIFIED (2) Abdominal pain Code(s): R10.9 - UNSPECIFIED ABDOMINAL PAIN (3) Colitis Code(s): K52.9 - NONINFECTIVE GASTROENTERITIS AND COLITIS, UNSPECIFIED (4) Diarrhea Code(s): R19.7 - DIARRHEA, UNSPECIFIED (5) Hematochezia Code(s): K92.1 - MELENA Assessment/Plan ABNORMAL CT CHEST WITH SUB-PLEURAL RETICULAR PATTERN SUGGESTS THE BEGINNING OF SMOKING RELATED INTERSTITIAL DISEASE HAVE ADVISED SMOKING CESSATION AND OUTPATIENT PFT'S OK TO DISCHARGE FROM PULMONARY STANDPOINT. I HAVE GIVEN PATIENT OUR CONTACT INFO Keshawn RAYGOZA MD
[2017-07-03] MEDS: CARVEDILOL 6.25 MG TABLET (FP) PO SCH (11:35)
[2017-07-03 15:18] VITALS: BP 139/78; PULSE 72; TEMP 98.6
--- NOTE | 2017-07-03 17:53 | DS ---
Physical Examination Vital Signs: Vital Signs Temperature 98.6 F 07/03/17 15:17 Pulse Rate 72 07/03/17 15:17 Respiratory Rate 18 07/03/17 15:17 Blood Pressure 139/78 07/03/17 15:17 O2 Sat by Pulse Oximetry (%) 100 07/03/17 11:00 Findings/Remarks: colonoscopy noted d/w GI needs f/u in 3 years, pt informed if tolerates PO diet can DC home and f/u as advised pt feels well no c/o Constitutional: Yes: No Distress, Calm Eyes: Yes: Conjunctiva Clear HENT: Yes: Atraumatic Neck: Yes: Supple Cardiovascular: Yes: Regular Rate and Rhythm Respiratory: Yes: CTA Bilaterally Gastrointestinal: Yes: Soft. No: Distention Renal/: No: CVA Tenderness - Left, CVA Tenderness - Right Musculoskeletal: No: Joint Stiffness, Joint Swelling Extremities: No: Cold, Cool Edema: No Integumentary: No: Rash, Venous Stasis Changes Neurological: Yes: WNL, Alert, Oriented ...Motor Strength: WNL Psychiatric: Yes: WNL, Alert, Oriented. No: Agitated, Suicidal Ideation Labs: CBC, BMP 07/03/17 06:00 07/03/17 06:00 Discharge Summary Reason For Visit: COLITIS Current Active Problems Abdominal pain (Acute) COPD (chronic obstructive pulmonary disease) (Acute) Colitis (Acute) Diarrhea (Acute) Family history of GI tract cancer (Acute) Family history of colon cancer in father (Acute) Hematochezia (Acute) Maternal family history gastrointestinal disorder (Acute) Nausea & vomiting (Acute) Noncompliance with medication regimen (Acute) Status post coronary artery stent placement (Acute) Procedures: Principal: admitted with bloody diarrhea ischemic colitis Other Procedures: IV ATB; GI eval; colonoscopy per GI c/w ischemic colitis;. 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 [employer]UM[employer] mammogram repeat colonoscopy per GI f/u pathology with gi outpt in 2-3 weeks RTER if worse or recurrent take meds as advised d/w pt scripts done Referrals: Smita Au [Primary Care Provider] - Nicole Downing MD [Staff Physician] - Jovany Conteh MD [Staff Physician] - Francisco Melton MD [Staff Physician] - Disposition: HOME - Home Medications Comprehensive Discharge Medication List: Ambulatory Orders Acetaminophen [Tylenol .Regular Strength -] 650 mg PO Q4H PRN tablet 07/03/17 Aspirin [ASA -] 81 mg PO DAILY #0 tab 07/03/17 Atorvastatin Ca [Lipitor] 20 mg PO HS #30 tablet 07/03/17 Carvedilol [Coreg -] 6.25 mg PO BID #60 tablet 07/03/17 levoFLOXacin [Levaquin -] 500 mg PO DAILY #4 tablet 07/03/17 metroNIDAZOLE [Flagyl -] 500 mg PO TID #12 tablet 07/03/17
== END 2017-07-03 18:16 | disposition home or self-care (01) | DRG 395 ==
LOC: JER 08:39 → JERBED 16:37 → J8W 19:54
PROVIDERS: ADMIT Internal Medicine; ATTEND Internal Medicine
PROC: 0DBL8ZX Excision of Transverse Colon, Via Natural or Artificial Opening Endoscopic, Diagnostic (ICD-10-PCS; 2017-07-03)
PROC: 0DBP8ZX Excision of Rectum, Via Natural or Artificial Opening Endoscopic, Diagnostic (ICD-10-PCS; 2017-07-03)
PROC: 0DDM8ZX Extraction of Descending Colon, Via Natural or Artificial Opening Endoscopic, Diagnostic (ICD-10-PCS; 2017-07-03)
PROC: 0DBH8ZX Excision of Cecum, Via Natural or Artificial Opening Endoscopic, Diagnostic (ICD-10-PCS; principal; 2017-07-03 13:30)
DX: K55.8 Other vascular disorders of intestine (principal); K52.9 Noninfective gastroenteritis and colitis, unspecified; I25.10 Atherosclerotic heart disease of native coronary artery without angina pectoris; I10 Essential (primary) hypertension; E78.5 Hyperlipidemia, unspecified; D25.9 Leiomyoma of uterus, unspecified; F17.200 Nicotine dependence, unspecified, uncomplicated; R10.9 Unspecified abdominal pain; R11.2 Nausea with vomiting, unspecified; K57.90 Diverticulosis of intestine, part unspecified, without perforation or abscess without bleeding; I25.2 Old myocardial infarction; J44.9 Chronic obstructive pulmonary disease, unspecified; K63.5 Polyp of colon; K62.1 Rectal polyp; Z95.5 Presence of coronary angioplasty implant and graft; Z91.14 Patient's other noncompliance with medication regimen; Z80.0 Family history of malignant neoplasm of digestive organs
CPT/HCPCS: 36415; 71250-TC; 74177-TC; 80048; 80053; 81003; 82550; 82728; 83540; 83550; 83605; 83690; 84484; 85025; 85610; 86140; 87045; 87046; 87086; 87177; 87209; 88305-TC; 93005; 93010; 99284-25

== ENCOUNTER 2019-04-01 09:51 | Emergency (ER) | payer OTHER ==
[2019-04-01 10:35] VITALS: TEMP 98.2; BMI 23.1
[2019-04-01] MEDS ORDERED: ASPIRIN 325 MG TABLET PO ONE (10:44)
--- NOTE | 2019-04-01 10:53 | PDOC ---
History of Present Illness - General Chief Complaint: Chest Pain Stated Complaint: CHEST PAIN Time Seen by Provider: 04/01/19 10:12 - History of Present Illness Initial Comments: 04/01/19 10:49 63 F with h/o HTN, hyperlipidemia, CAD, DE, s/p PCI (stent), presenting to ED with chest pain that began this morning at 7am. Pt states [place] was on the train this morning when she developed a mild pain in her chest. It was midsternal, non -radiating. Pt states that this pain persisted until she got to work, when she experienced a sudden sharp pain lasting several seconds. This pain subsided, and pt now reports only mild residual discomfort. Denies any SOB. Denies N/V. Denies diaphoresis. Pt states that this pain feels similar to when she had her DE. Pt denies leg swelling. Denies recent travel/immobilization. Pt notes that she has been noncompliant with her meds for 6 months. She states she has been too busy to see her PMD or esthetician facialist. Past History - Past Medical History Allergies/Adverse Reactions: Allergies Allergy/AdvReac Type Severity Reaction Status Date / Time No Known Allergies Allergy Verified 04/01/19 10:15 Home Medications: Ambulatory Orders Acetaminophen [Acetaminophen ER] 650 mg PO Q8H PRN 04/01/19 Aspirin [ASA -] 81 mg PO DAILY 04/01/19 Atorvastatin Calcium [Lipitor] 20 mg PO HS 04/01/19 Carvedilol [Coreg] 6.25 mg PO BID 04/01/19 Cardiac Disorders: Yes (mi/stent) COPD: No HTN: Yes Hypercholesterolemia: Yes - Surgical History Cardiac Surgery: Yes (card stent x1) - Immunization History Immunization Up to Date: Yes - Psycho Social/Smoking Cessation Hx Smoking Status: Yes Smoking History: Current every day smoker Have you smoked in the past 12 months: Yes Number of Cigarettes Smoked Daily: 10 Information on smoking cessation initiated: No 'Breaking Loose' booklet given: 06/30/17 Hx Alcohol Use: No Drug/Substance Use Hx: No Substance Use Type: None Review of Systems - Review of Systems Comments:: 04/01/19 10:51 GENERAL/CONSTITUTIONAL: No fever or chills. No weakness. HEAD, EYES, EARS, NOSE AND THROAT: No change in vision. No ear pain or discharge. No sore throat. CARDIOVASCULAR: + chest pain, no shortness of breath, no loss of consciousness RESPIRATORY: No cough, wheezing, or hemoptysis. GASTROINTESTINAL: No nausea, vomiting, diarrhea or constipation. GENITOURINARY: No dysuria, frequency, or change in urination. MUSCULOSKELETAL: No joint or muscle swelling or pain. No neck or back pain. SKIN: No rash NEUROLOGIC: No vertigo, no change in strength/sensation. ENDOCRINE: No increased thirst. No abnormal weight change. HEMATOLOGIC/LYMPHATIC: No anemia, easy bleeding, or history of blood clots. ALLERGIC/IMMUNOLOGIC: No hives or skin allergy. *Physical Exam - Vital Signs Last Vital Signs Temp Pulse Resp BP Pulse Ox 98.2 F 91 H 16 198/113 H 98 04/01/19 10:15 04/01/19 13:27 04/01/19 13:27 04/01/19 13:27 04/01/19 13:27 - Physical Exam Comments: 04/01/19 10:51 "GENERAL: Awake, alert, and fully oriented, in no acute distress. HEAD: No signs of trauma EYES: PERRLA, EOMI, sclera anicteric, conjunctiva clear ENT: Auricles normal inspection, hearing grossly normal, nares patent, oropharynx clear without exudates. Moist mucosa NECK: Nontender, no stepoffs, Normal ROM, supple, no lymphadenopathy, JVD, or masses LUNGS: Breath sounds equal, clear to auscultation bilaterally. No wheezes, and no crackles HEART: Regular rate and rhythm, normal S1 and S2, no murmurs, rubs or gallops ABDOMEN: Soft, nontender, normoactive bowel sounds. No guarding, no rebound. No masses EXTREMITIES: Normal range of motion, no edema. No clubbing or cyanosis. No cords, erythema, or tenderness NEUROLOGICAL: Cranial nerves II through XII intact. 5/5 strength and sensation in all extremities, Normal speech, normal gait, normal cerebellar function SKIN: Warm, Dry, normal turgor, no rashes or lesions noted. Heart Score/ECG Review - History History: Highly suspicious - Electrocardiogram EKG: Normal - Age Age: 45-65 - Risk Factors Risk Factors Heart Score: Yes Hx Hypercholesterolemia, Yes Hx Hypertension, Yes Smoking History Based on the list above the patient has:: >/=3 risk factors or Hx atherosclerotic disease - Troponin Troponin: </= normal limit - Score Heart Score - Total: 5 - ECG Impressions Comment:: 04/01/19 10:53 NSR, no JANETTE/STDs, no TWIs, axis wnl, intervals wnl, rate 86 ED Treatment Course - LABORATORY CBC & Chemistry Diagram: 04/01/19 10:50 04/01/19 10:50 - ADDITIONAL ORDERS Additional order review: Laboratory Results 04/01/19 04/01/19 10:50 10:50 PT with INR 12.10 INR 1.03 PTT (Actin FS) 35.1 Sodium 138 Potassium 4.3 Chloride 108 H Carbon Dioxide 29 Anion Gap 1 L BUN 19.1 H Creatinine 1.1 Est GFR (CKD-EPI)AfAm 62.31 Est GFR (CKD-EPI)NonAf 53.76 Random Glucose 86 Calcium 9.3 Total Bilirubin 0.4 AST 14 L ALT 11 L Alkaline Phosphatase 106 Creatine Kinase 98 Troponin I < 0.02 B-Natriuretic Peptide 217.5 H Total Protein 8.1 Albumin 3.6 04/01/19 10:50 RBC 4.29 MCV 94.3 MCHC 32.8 RDW 13.3 MPV 7.3 L Neutrophils % 55.7 Lymphocytes % 33.2 Monocytes % 8.8 Eosinophils % 1.4 Basophils % 0.9 - RADIOLOGY Radiology Studies Ordered: Category Date Time Status CHEST X-RAY PORTABLE* [RAD] Stat Radiology 04/01/19 10:43 Completed - Medications Given in the ED: ED Medications Discontinued Medications Generic Name Dose Route Start Last Admin Trade Name Freq PRN Reason Stop Dose Admin Aspirin 325 mg 04/01/19 10:44 04/01/19 11:01 Asa - PO 04/01/19 10:45 325 mg ONCE ONE Administration Medical Decision Making - Medical Decision Making 04/01/19 10:53 63 F with chest pain. Concerning for ACS given pt's cardiac history. EKG without ischemic changes. - Labs, trop - CXR - Aspirin - Admit tele vs txfer 04/01/19 13:19 1st trop negative Pt now requesting to leave AMA, as she has "too many things to do" The patient is clinically sober, free from distracting injury, appears to have intact insight and judgment and reason and in my opinion has the capacity to make decisions. The patient presented with chest pain. I have explained that I am concerned that this may represent a heart attack; they have verbalized an understanding of my concerns. I have told the patient that while their labs were normal, they could still have a heart attack. I have discussed the need for cardiology consultation and possible admission to the hospital to get more information about potential causes of the patients chest pain. I have told the patient that if they leave and have chest pain or shortness of breath, they could get much worse, could become critically ill, and could possibly become disabled or . I have offered to give the patient more pain medication. I have asked them to stay in the hospital. She is unwilling to stay overnight for monitoring. She is refusing any further care and is leaving against medical advice. I am unable to convince the patient to stay, I have asked them to return as soon as possible to complete their evaluation. I have answered all their questions. I have advised pt to call her esthetician facialist Dr. Butler as soon as possible. I spoke with Dr. Conteh, covering for Dr. Butler, who will have the office staff reach out to the patient. Discharge - Discharge Information Problems reviewed: Yes Clinical Impression/Diagnosis: Chest pain Disposition: AGAINST MEDICAL ADVICE - Follow up/Referral Referrals: Smita Au [Primary Care Provider] - - Patient Discharge Instructions Patient Printed Discharge Instructions: DI for Chest Pain Additional Instructions: You are leaving against medical advice. You presented to the ER with chest pain, and we are concerned this could represent a heart attack. Your blood pressure is also very elevated. Because you are leaving prior to completion of your work up, your condition may worsen and lead to severe disability or . Please return to the ER as soon as possible to complete your work up. - Post Discharge Activity
[2019-04-01] MEDS ORDERED: ASPIRIN 325 MG ENTERIC COATED TABLET (FP) ONE (11:00)
[2019-04-01 11:26] LABS: BASO % 0.9 % (0-2.0); EOS % 1.4 % (0-4.5); HEMATOCRIT 40.5 % (32.4-45.2); HEMOGLOBIN 13.3 GM/dL (10.7-15.3); LYMPH % 33.2 % (8-40); MCH 30.9 pg (25.7-33.7); MCHC 32.8 g/dl (32.0-36.0); MEAN CELL VOLUME 94.3 fl (80-96); MEAN PLT VOLUME 7.3 fl (7.5-11.1); MONO % 8.8 % (3.8-10.2); NEUT % 55.7 % (42.8-82.8); PLATELET COUNT 272 K/MM3 (134-434); RBC 4.29 M/mm3 (3.60-5.2); RDW 13.3 % (11.6-15.6)
[2019-04-01 11:45] LABS: INR 1.03 (0.83-1.09); PROTHROMBIN TIME (PATIENT) 12.1 SEC (9.7-13.0)
[2019-04-01 11:48] LABS: ACTIVATED PTT 35.1 SECONDS (25.2-36.5)
[2019-04-01 11:50] LABS: ALBUMIN 3.6 g/dl (3.4-5.0); ALK PHOS 106 U/L (45-117); ANION GAP 1 MMOL/L (8-16); BILIRUBIN,TOTAL 0.4 mg/dL (0.2-1); BLOOD UREA NITROGEN 19.1 mg/dL (7-18); CALCIUM 9.3 mg/dL (8.5-10.1); CHLORIDE 108 mmol/L (98-107); CO2 29 mmol/L (21-32); CREATININE 1.1 mg/dL (0.55-1.3); GLUCOSE,RANDOM 86 mg/dL (74-106); N-TERMINAL BNP 217.5 pg/ml (5-125); POTASSIUM 4.3 mmol/L (3.5-5.1); SGOT/AST 14 U/L (15-37); SGPT/ALT 11 U/L (13-61); SODIUM 138 mmol/L (136-145); TOT PROT 8.1 g/dl (6.4-8.2)
[2019-04-01 13:28] VITALS: BP 198/113; PULSE 91
--- NOTE | 2019-04-03 20:29 | EKG ---
Test Reason : Blood Pressure : / mmHG Vent. Rate : 086 BPM Atrial Rate : 086 BPM P-R Int : 150 ms QRS Dur : 068 ms QT Int : 366 ms P-R-T Axes : 063 049 056 degrees QTc Int : 437 ms POOR DATA QUALITY, INTERPRETATION MAY BE ADVERSELY AFFECTED NORMAL SINUS RHYTHM POSSIBLE LEFT ATRIAL ENLARGEMENT BORDERLINE ECG WHEN COMPARED WITH ECG OF 30-JUN-2017 10:52, NO SIGNIFICANT CHANGE WAS FOUND Confirmed by STEPHANIE BURNS MD ([id number]) on 04/03/2019 8:28:43 PM Referred By: Confirmed By:STEPHANIE BURNS MD
== END 2019-04-01 14:10 | disposition left against medical advice (07) ==
LOC: JER 09:51
DX: R07.9 Chest pain, unspecified (principal); I25.10 Atherosclerotic heart disease of native coronary artery without angina pectoris; I10 Essential (primary) hypertension; Z95.5 Presence of coronary angioplasty implant and graft; I25.2 Old myocardial infarction; E78.5 Hyperlipidemia, unspecified; F17.210 Nicotine dependence, cigarettes, uncomplicated
CPT/HCPCS: 36415; 71045-TC-FY; 80053; 82550; 83880; 84484; 85025; 85610; 85730; 93005; 93010; 99285-25

== ENCOUNTER 2020-04-17 01:27 | Emergency (ER) | payer OTHER ==
[2020-04-17 01:59] VITALS: BMI 22.9
[2020-04-17] MEDS ORDERED: ASPIRIN 81 MG CHEWABLE TABLETS PO ONE ×2 (02:13)
[2020-04-17] MEDS ORDERED: METOPROLOL TARTRATE 5 MG/5 ML VIAL IVPUSH ONE ×2 (02:14→03:10)
[2020-04-17] MEDS ORDERED: NITROGLYCERIN 2% OINTMENT - 1GM PACKET TD ONE ×2 (02:16→02:20)
[2020-04-17] MEDS ORDERED: ASPIRIN 81 MG CHEWABLE TABLETS ONE ×2 (02:17→02:20)
[2020-04-17] MEDS ORDERED: METOPROLOL TARTRATE 5 MG/5 ML VIAL ONE ×2 (02:17→03:14)
[2020-04-17 03:09] LABS: HEMATOCRIT 39.3 % (32.4-45.2); HEMOGLOBIN 12.9 GM/dL (10.7-15.3); MCH 31.4 pg (25.7-33.7); MCHC 32.9 g/dl (32.0-36.0); MEAN CELL VOLUME 95.4 fl (80-96); MEAN PLT VOLUME 7.8 fl (7.5-11.1); PLATELET COUNT 280 K/MM3 (134-434); RBC 4.12 M/mm3 (3.60-5.2); RDW 13.9 % (11.6-15.6); WHITE BLOOD COUNT 7.6 K/mm3 (4.0-10.0)
[2020-04-17] MEDS ORDERED: morphine CARPU-JECT 2 MG/1 ML DISP.SYRIN IVPUSH ONE (03:10)
[2020-04-17] MEDS ORDERED: MORPHINE SULFATE 2 MG/ML VIAL ONE (03:14)
[2020-04-17] MEDS ORDERED: SODIUM CHLORIDE 0.9% 1000 ML INFUS.BAG IV ONE (03:15)
[2020-04-17 03:28] LABS: POTASSIUM 4.6 mmol/L (3.5-5.1)
[2020-04-17 03:30] LABS: CALCIUM 8.8 mg/dL (8.5-10.1)
[2020-04-17 03:31] LABS: ALBUMIN 3.1 g/dl (3.4-5.0); BLOOD UREA NITROGEN 16.9 mg/dL (7-18)
[2020-04-17 03:34] LABS: CREATININE 1.3 mg/dL (0.55-1.3)
[2020-04-17 03:36] LABS: BILIRUBIN,TOTAL 0.3 mg/dL (0.2-1)
[2020-04-17] MEDS ORDERED: HEPARIN NA (PORCINE) 5,000 UNITS/ML 1ML VIAL IVPUSH PRN ×2 (04:20)
[2020-04-17] MEDS ORDERED: HEPARIN INFUSION - 25,000 UNITS/500 ML INFUS.BAG IVPB ONE (04:28)
[2020-04-17] MEDS ORDERED: NITROGLYCERIN 25MG/D5W 250ML 25 MG/250 ML ML IVPB SCH (04:30)
[2020-04-17] MEDS ORDERED: HEPARIN INFUSION - 25,000 UNITS/500 ML INFUS.BAG IVPB SCH (04:30)
[2020-04-17 05:18] LABS: PROTHROMBIN TIME (PATIENT) 12.1 SEC (9.7-13.0)
[2020-04-17 05:20] LABS: ACTIVATED PTT 29.1 SECONDS (25.2-36.5)
[2020-04-17 05:34] VITALS: BP 126/90; PULSE 92; TEMP 98.6
== END 2020-04-17 06:10 | disposition short-term general hospital (02) ==
LOC: JER 01:27
PROC: 3E033NZ Introduction of Analgesics, Hypnotics, Sedatives into Peripheral Vein, Percutaneous Approach (ICD-10-PCS; principal; 2020-04-17)
PROC: 3E033GC Introduction of Other Therapeutic Substance into Peripheral Vein, Percutaneous Approach (ICD-10-PCS; 2020-04-17)
DX: I21.4 Non-ST elevation (NSTEMI) myocardial infarction (principal)
CPT/HCPCS: 36415; 71045-TC-FY; 80053; 82550; 82553; 84484; 85027; 85610; 85730; 93005; 93010; 99291; 99292; J1644

== ENCOUNTER 2021-12-12 18:18 | Inpatient (IN) | payer OTHER ==
[2021-12-12 20:15] LABS: VENOUS BASE EXCESS 0.6 mmol/L (-2-2); VENOUS O2 SATURATION 30.1 % (70-80); VENOUS PCO2 45.5 mmHg (38-52); VENOUS PH 7.376 (7.310-7.410)
[2021-12-12 20:21] LABS: HEMOGLOBIN 10.8 GM/dL (10.7-15.3); MCH 31.4 pg (25.7-33.7); MCHC 32.7 g/dl (32.0-36.0); MEAN CELL VOLUME 96.1 fl (80-96); MEAN PLT VOLUME 8.6 fl (7.5-11.1); PLATELET COUNT 746 10^3/uL (134-434); RBC 3.43 M/mm3 (3.60-5.2); RDW 19.9 % (11.6-15.6)
[2021-12-12 20:32] LABS: INR 1.21 (0.83-1.09); PROTHROMBIN TIME (PATIENT) 13.9 SEC (9.7-13.0)
[2021-12-12 20:34] LABS: ACTIVATED PTT 27.9 SECONDS (25.2-36.5)
[2021-12-12 20:43] LABS: CALCIUM 9.3 mg/dL (8.5-10.1)
[2021-12-12 20:44] LABS: ALBUMIN 2.7 g/dl (3.4-5.0); BLOOD UREA NITROGEN 28.1 mg/dL (7-18)
[2021-12-12 20:47] LABS: CREATININE 1.7 mg/dL (0.55-1.3)
[2021-12-12 20:48] LABS: TOT PROT 7.5 g/dl (6.4-8.2)
[2021-12-12 20:49] LABS: BILIRUBIN,TOTAL 0.7 mg/dL (0.2-1)
[2021-12-12 21:33] LABS: ANISOCYTOSIS 1+; MACROCYTOSIS 1+; PLATELET ESTIMATE INCREASED
[2021-12-12] MEDS ORDERED: CEFTRIAXONE 1,000 MG in DEXTROSE 5%-WATER - 50 ML IVPB ONE (23:22)
[2021-12-12] MEDS ORDERED: AZITHROMYCIN IVPB 500 MG in DEXTROSE 5%-WATER - 250 ML IVPB ONE (23:22)
[2021-12-13] MEDS ORDERED: CEFTRIAXONE 1 GM/50 ML BAG ONE (00:08)
[2021-12-13] MEDS ORDERED: AZITHROMYCIN IVPB 500 MG/250 ML BAG IVPB ONE (00:08)
[2021-12-13] MEDS ORDERED: ACETAMINOPHEN 325 MG TABLET (FP) PO PRN (06:29)
[2021-12-13] MEDS ORDERED: CARVEDILOL 6.25 MG TABLET (FP) PO SCH (10:00)
[2021-12-13 10:09] VITALS: BMI 21.4
[2021-12-13] MEDS ORDERED: cefTRIAXone SODIUM 1 GM VIAL ONE (10:46)
[2021-12-13] MEDS ORDERED: DEXTROSE 5%-WATER - 50 ML IVPB ONE (10:46)
[2021-12-13] MEDS: CEFTRIAXONE 1 GM in DEXTROSE 5%-WATER - 50 ML IVPB SCH (11:02)
[2021-12-13] MEDS: FAMOTIDINE 20 MG TABLET PO SCH (11:03)
[2021-12-13] MEDS: HEPARIN NA (PORCINE) 5,000 UNITS/ML 1ML VIAL SQ SCH ×2 (11:03→21:08)
[2021-12-13] MEDS: ASPIRIN 81 MG CHEWABLE TABLETS PO SCH (11:03)
[2021-12-13 13:09] LABS: HEMATOCRIT 31.3 % (32.4-45.2); HEMOGLOBIN 10.5 GM/dL (10.7-15.3); MCH 32.1 pg (25.7-33.7); MCHC 33.4 g/dl (32.0-36.0); MEAN CELL VOLUME 96.1 fl (80-96); MEAN PLT VOLUME 8.5 fl (7.5-11.1); PLATELET COUNT 663 10^3/uL (134-434); RBC 3.26 M/mm3 (3.60-5.2); RDW 19.4 % (11.6-15.6); WHITE BLOOD COUNT 6.2 K/mm3 (4.0-10.0)
[2021-12-13 13:32] LABS: ALBUMIN 2.6 g/dl (3.4-5.0); BLOOD UREA NITROGEN 25.1 mg/dL (7-18); CALCIUM 9.4 mg/dL (8.5-10.1)
[2021-12-13 13:35] LABS: CREATININE 1.6 mg/dL (0.55-1.3)
[2021-12-13 13:37] LABS: BILIRUBIN,TOTAL 0.6 mg/dL (0.2-1); TOT PROT 7.9 g/dl (6.4-8.2)
[2021-12-13 14:24] LABS: ANISOCYTOSIS 1+; MACROCYTOSIS 0
[2021-12-13 14:48] LABS: EPI CELLS 16 /uL (0-25.1); HYALINE CASTS 8 /uL (0-3.1); PH,URINE 5.5 (5.0-8.0); URINE APPEARANCE CLOUDY; URINE BACTERIA 34 /uL (0-1359); URINE BILIRUBIN NEGATIVE (NEGATIVE); URINE COLOR DK YELLOW; URINE GLUCOSE (UA) NEGATIVE (NEGATIVE); URINE KETONE TRACE (NEGATIVE); URINE LEUK ESTERASE NEGATIVE (NEGATIVE); URINE NITRITE NEGATIVE (NEGATIVE); URINE PROTEIN 1+ (NEGATIVE); URINE RBC 2 /uL (0-23.9); URINE WBC 12 /uL (0-25.8)
[2021-12-13] MEDS ORDERED: methylPREDNISolone NA SUCC 40 MG/1 ML VIAL IVPUSH SCH (15:00)
[2021-12-13] MEDS: methylPREDNISolone NA SUCC 40 MG/1 ML VIAL IVPUSH SCH ×2 (15:46→21:07)
[2021-12-13] MEDS: ALBUTEROL SO4 2.5/IPRATROPIUM 0.5 INH SOL 3 ML VIAL.NEB. NEB SCH ×2 (16:20→20:29)
[2021-12-13] MEDS: METOPROLOL TARTRATE 50 MG TABLET (FP) PO SCH (21:07)
[2021-12-13] MEDS: ROSUVASTATIN CA 20 MG TABLET PO SCH (21:07)
[2021-12-13] MEDS ORDERED: ATORVASTATIN CA 20 MG TABLET (FP) PO SCH (22:00)
[2021-12-14] MEDS: methylPREDNISolone NA SUCC 40 MG/1 ML VIAL IVPUSH SCH ×4 (03:05→22:41)
[2021-12-14] MEDS: ALBUTEROL SO4 2.5/IPRATROPIUM 0.5 INH SOL 3 ML VIAL.NEB. NEB SCH ×4 (07:40→20:30)
[2021-12-14 09:10] LABS: HEMATOCRIT 34.7 % (32.4-45.2); HEMOGLOBIN 11.4 GM/dL (10.7-15.3); MCH 31.7 pg (25.7-33.7); MCHC 32.8 g/dl (32.0-36.0); MEAN CELL VOLUME 96.6 fl (80-96); MEAN PLT VOLUME 8.5 fl (7.5-11.1); PLATELET COUNT 739 10^3/uL (134-434); RBC 3.59 M/mm3 (3.60-5.2); WHITE BLOOD COUNT 7.2 K/mm3 (4.0-10.0)
[2021-12-14 09:37] LABS: CALCIUM 10.1 mg/dL (8.5-10.1)
[2021-12-14 09:38] LABS: BLOOD UREA NITROGEN 34.6 mg/dL (7-18)
[2021-12-14 09:40] LABS: CREATININE 1.9 mg/dL (0.55-1.3)
[2021-12-14 09:42] LABS: BILIRUBIN,TOTAL 0.4 mg/dL (0.2-1); TOT PROT 8.4 g/dl (6.4-8.2)
[2021-12-14] MEDS ORDERED: cefTRIAXone SODIUM 1 GM VIAL ONE (09:42)
[2021-12-14] MEDS ORDERED: DEXTROSE 5%-WATER - 50 ML IVPB ONE (09:42)
[2021-12-14] MEDS: ASPIRIN 81 MG CHEWABLE TABLETS PO SCH (10:06)
[2021-12-14] MEDS: FAMOTIDINE 20 MG TABLET PO SCH (10:06)
[2021-12-14] MEDS: METOPROLOL TARTRATE 50 MG TABLET (FP) PO SCH ×2 (10:06→22:42)
[2021-12-14] MEDS: HEPARIN NA (PORCINE) 5,000 UNITS/ML 1ML VIAL SQ SCH ×2 (10:07→22:44)
[2021-12-14] MEDS: CEFTRIAXONE 1 GM in DEXTROSE 5%-WATER - 50 ML IVPB SCH (10:09)
[2021-12-14] MEDS: AZITHROMYCIN IVPB 500 MG/250 ML BAG IVPB SCH (10:09)
[2021-12-14 11:56] LABS: ANISOCYTOSIS 1+; MACROCYTOSIS 0
[2021-12-14] MEDS: ROSUVASTATIN CA 20 MG TABLET PO SCH (22:42)
[2021-12-15] MEDS: methylPREDNISolone NA SUCC 40 MG/1 ML VIAL IVPUSH SCH ×3 (04:17→17:25)
[2021-12-15 08:09] LABS: HEMATOCRIT 29.3 % (32.4-45.2); HEMOGLOBIN 9.7 GM/dL (10.7-15.3); MCH 31.6 pg (25.7-33.7); MCHC 33.1 g/dl (32.0-36.0); MEAN CELL VOLUME 95.5 fl (80-96); MEAN PLT VOLUME 8.1 fl (7.5-11.1); PLATELET COUNT 653 10^3/uL (134-434); RBC 3.07 M/mm3 (3.60-5.2); RDW 19.4 % (11.6-15.6); WHITE BLOOD COUNT 20.6 K/mm3 (4.0-10.0)
[2021-12-15 08:21] LABS: ALBUMIN 2.6 g/dl (3.4-5.0); BLOOD UREA NITROGEN 41.8 mg/dL (7-18)
[2021-12-15 08:22] LABS: BILIRUBIN,TOTAL 0.2 mg/dL (0.2-1); TOT PROT 7.2 g/dl (6.4-8.2)
[2021-12-15 08:23] LABS: CALCIUM 9.4 mg/dL (8.5-10.1)
[2021-12-15 08:24] LABS: CREATININE 1.8 mg/dL (0.55-1.3)
[2021-12-15] MEDS: ALBUTEROL SO4 2.5/IPRATROPIUM 0.5 INH SOL 3 ML VIAL.NEB. NEB SCH ×4 (08:30→20:51)
[2021-12-15] MEDS ORDERED: DEXTROSE 5%-WATER - 50 ML IVPB ONE (10:09)
[2021-12-15] MEDS ORDERED: cefTRIAXone SODIUM 1 GM VIAL ONE (10:09)
[2021-12-15] MEDS: CEFTRIAXONE 1 GM in DEXTROSE 5%-WATER - 50 ML IVPB SCH (10:14)
[2021-12-15] MEDS: METOPROLOL TARTRATE 50 MG TABLET (FP) PO SCH ×2 (10:17→21:43)
[2021-12-15] MEDS: ASPIRIN 81 MG CHEWABLE TABLETS PO SCH (10:17)
[2021-12-15] MEDS: HEPARIN NA (PORCINE) 5,000 UNITS/ML 1ML VIAL SQ SCH ×2 (10:17→21:43)
[2021-12-15] MEDS: AZITHROMYCIN IVPB 500 MG/250 ML BAG IVPB SCH (10:17)
[2021-12-15] MEDS: FAMOTIDINE 20 MG TABLET PO SCH (10:17)
[2021-12-15 11:06] LABS: ANISOCYTOSIS 1+; MACROCYTOSIS 1+
[2021-12-15] MEDS: ROSUVASTATIN CA 20 MG TABLET PO SCH (21:43)
[2021-12-16] MEDS: methylPREDNISolone NA SUCC 40 MG/1 ML VIAL IVPUSH SCH ×3 (02:08→17:55)
[2021-12-16 07:19] LABS: ALBUMIN 2.5 g/dl (3.4-5.0); BLOOD UREA NITROGEN 44.5 mg/dL (7-18)
[2021-12-16 07:21] LABS: CREATININE 1.8 mg/dL (0.55-1.3)
[2021-12-16 07:23] LABS: TOT PROT 6.7 g/dl (6.4-8.2)
[2021-12-16 07:24] LABS: BILIRUBIN,TOTAL 0.2 mg/dL (0.2-1); MCHC 32.3 g/dl (32.0-36.0); MEAN PLT VOLUME 8.7 fl (7.5-11.1); PLATELET COUNT 588 10^3/uL (134-434); RBC 2.92 M/mm3 (3.60-5.2); RDW 19.6 % (11.6-15.6); WHITE BLOOD COUNT 23.9 K/mm3 (4.0-10.0)
[2021-12-16] MEDS: ALBUTEROL SO4 2.5/IPRATROPIUM 0.5 INH SOL 3 ML VIAL.NEB. NEB SCH ×4 (07:25→20:42)
[2021-12-16 08:45] LABS: ANISOCYTOSIS 1+; MACROCYTOSIS 1+
[2021-12-16] MEDS ORDERED: cefTRIAXone SODIUM 1 GM VIAL ONE (09:23)
[2021-12-16] MEDS ORDERED: DEXTROSE 5%-WATER - 50 ML IVPB ONE (09:24)
[2021-12-16] MEDS: CEFTRIAXONE 1 GM in DEXTROSE 5%-WATER - 50 ML IVPB SCH (10:20)
[2021-12-16] MEDS: HEPARIN NA (PORCINE) 5,000 UNITS/ML 1ML VIAL SQ SCH (10:22)
[2021-12-16] MEDS: ASPIRIN 81 MG CHEWABLE TABLETS PO SCH (10:22)
[2021-12-16] MEDS: FAMOTIDINE 20 MG TABLET PO SCH (10:22)
[2021-12-16] MEDS: AZITHROMYCIN IVPB 500 MG/250 ML BAG IVPB SCH (10:23)
[2021-12-16] MEDS: METOPROLOL TARTRATE 50 MG TABLET (FP) PO SCH ×2 (10:24→21:42)
[2021-12-16] MEDS: ENOXAPARIN NA (PORCINE) 60 MG/0.6 ML DISP.SYRIN SQ SCH (17:54)
[2021-12-16] MEDS: ROSUVASTATIN CA 20 MG TABLET PO SCH (21:42)
[2021-12-17] MEDS: methylPREDNISolone NA SUCC 40 MG/1 ML VIAL IVPUSH SCH ×3 (01:55→18:01)
[2021-12-17] MEDS: ALBUTEROL SO4 2.5/IPRATROPIUM 0.5 INH SOL 3 ML VIAL.NEB. NEB SCH ×4 (08:10→20:15)
[2021-12-17] MEDS ORDERED: cefTRIAXone SODIUM 1 GM VIAL ONE (09:50)
[2021-12-17] MEDS ORDERED: DEXTROSE 5%-WATER - 50 ML IVPB ONE (09:50)
[2021-12-17] MEDS: CEFTRIAXONE 1 GM in DEXTROSE 5%-WATER - 50 ML IVPB SCH (10:48)
[2021-12-17] MEDS: ASPIRIN 81 MG CHEWABLE TABLETS PO SCH (10:49)
[2021-12-17] MEDS: FAMOTIDINE 20 MG TABLET PO SCH (10:49)
[2021-12-17] MEDS: METOPROLOL TARTRATE 50 MG TABLET (FP) PO SCH ×2 (10:49→22:23)
[2021-12-17] MEDS: ENOXAPARIN NA (PORCINE) 60 MG/0.6 ML DISP.SYRIN SQ SCH (10:50)
[2021-12-17] MEDS: AZITHROMYCIN IVPB 500 MG/250 ML BAG IVPB SCH (10:55)
[2021-12-17 14:09] LABS: FREE KAPPA,SERUM 68.2 mg/L (3.3-19.4)
[2021-12-17] MEDS: ROSUVASTATIN CA 20 MG TABLET PO SCH (22:23)
[2021-12-18] MEDS: methylPREDNISolone NA SUCC 40 MG/1 ML VIAL IVPUSH SCH ×3 (02:16→17:27)
[2021-12-18] MEDS: ALBUTEROL SO4 2.5/IPRATROPIUM 0.5 INH SOL 3 ML VIAL.NEB. NEB SCH ×2 (07:45→11:56)
[2021-12-18 08:07] LABS: THYROID STIM IMMUNOGLOBULIN 0.17 IU/L (0.00-0.55)
[2021-12-18] MEDS: METOPROLOL TARTRATE 50 MG TABLET (FP) PO SCH ×2 (10:41→22:28)
[2021-12-18] MEDS: ENOXAPARIN NA (PORCINE) 60 MG/0.6 ML DISP.SYRIN SQ SCH (10:42)
[2021-12-18] MEDS: FAMOTIDINE 20 MG TABLET PO SCH (10:42)
[2021-12-18] MEDS: ASPIRIN 81 MG CHEWABLE TABLETS PO SCH (10:42)
[2021-12-18] MEDS: CEFTRIAXONE 1 GM in DEXTROSE 5%-WATER - 50 ML IVPB SCH (10:43)
[2021-12-18] MEDS: AZITHROMYCIN IVPB 500 MG/250 ML BAG IVPB SCH (10:45)
[2021-12-18] MEDS: ROSUVASTATIN CA 20 MG TABLET PO SCH (22:28)
[2021-12-19] MEDS: methylPREDNISolone NA SUCC 40 MG/1 ML VIAL IVPUSH SCH ×2 (03:17→10:30)
[2021-12-19 07:38] LABS: HEMATOCRIT 29.2 % (32.4-45.2); HEMOGLOBIN 9.3 GM/dL (10.7-15.3); MCH 30.9 pg (25.7-33.7); MCHC 31.9 g/dl (32.0-36.0); MEAN CELL VOLUME 96.8 fl (80-96); MEAN PLT VOLUME 8.4 fl (7.5-11.1); PLATELET COUNT 437 10^3/uL (134-434); RBC 3.02 M/mm3 (3.60-5.2); RDW 19.8 % (11.6-15.6); WHITE BLOOD COUNT 24.9 K/mm3 (4.0-10.0)
[2021-12-19 08:02] LABS: CALCIUM 8.7 mg/dL (8.5-10.1)
[2021-12-19 08:03] LABS: ALBUMIN 2.3 g/dl (3.4-5.0); BLOOD UREA NITROGEN 53.1 mg/dL (7-18)
[2021-12-19 08:06] LABS: CREATININE 1.5 mg/dL (0.55-1.3)
[2021-12-19 08:07] LABS: BILIRUBIN,TOTAL 0.3 mg/dL (0.2-1); TOT PROT 5.8 g/dl (6.4-8.2)
[2021-12-19 08:59] LABS: ANISOCYTOSIS 1+; MACROCYTOSIS 1+
[2021-12-19] MEDS: CEFTRIAXONE 1 GM in DEXTROSE 5%-WATER - 50 ML IVPB SCH (10:33)
[2021-12-19] MEDS: ENOXAPARIN NA (PORCINE) 60 MG/0.6 ML DISP.SYRIN SQ SCH (10:33)
[2021-12-19] MEDS: AZITHROMYCIN IVPB 500 MG/250 ML BAG IVPB SCH (10:34)
[2021-12-19] MEDS: FAMOTIDINE 20 MG TABLET PO SCH (10:34)
[2021-12-19] MEDS: ASPIRIN 81 MG CHEWABLE TABLETS PO SCH (10:35)
[2021-12-19] MEDS: METOPROLOL TARTRATE 50 MG TABLET (FP) PO SCH ×2 (10:35→21:49)
[2021-12-19] MEDS: predniSONE 20 MG TABLET (UD) PO SCH (16:54)
[2021-12-19 20:05] LABS: HIV INTERPRETATION PRESUMPTIVE POSITIVE (NEGATIVE)
[2021-12-19] MEDS: ROSUVASTATIN CA 20 MG TABLET PO SCH (21:49)
[2021-12-20 07:59] LABS: HEMATOCRIT 30.6 % (32.4-45.2); HEMOGLOBIN 9.8 GM/dL (10.7-15.3); MCH 30.9 pg (25.7-33.7); MEAN CELL VOLUME 96.6 fl (80-96); MEAN PLT VOLUME 8.5 fl (7.5-11.1); PLATELET COUNT 402 10^3/uL (134-434); RBC 3.17 M/mm3 (3.60-5.2); RDW 19.8 % (11.6-15.6)
[2021-12-20 08:20] LABS: ALBUMIN 2.3 g/dl (3.4-5.0)
[2021-12-20 08:23] LABS: CREATININE 1.5 mg/dL (0.55-1.3)
[2021-12-20 08:25] LABS: BILIRUBIN,TOTAL 0.3 mg/dL (0.2-1); TOT PROT 5.9 g/dl (6.4-8.2)
[2021-12-20] MEDS: ENOXAPARIN NA (PORCINE) 60 MG/0.6 ML DISP.SYRIN SQ SCH (10:25)
[2021-12-20] MEDS: ASPIRIN 81 MG CHEWABLE TABLETS PO SCH (10:26)
[2021-12-20] MEDS: predniSONE 20 MG TABLET (UD) PO SCH (10:26)
[2021-12-20] MEDS: METOPROLOL TARTRATE 50 MG TABLET (FP) PO SCH ×2 (10:26→21:45)
[2021-12-20] MEDS: FAMOTIDINE 20 MG TABLET PO SCH (10:26)
[2021-12-20 12:33] LABS: ANISOCYTOSIS 1+; MACROCYTOSIS 0; OVALOCYTE 2+; TARGET CELLS 1+; TEAR DROP CELLS 1+
[2021-12-20] MEDS: ROSUVASTATIN CA 20 MG TABLET PO SCH (21:45)
[2021-12-21 08:31] VITALS: PULSE 75; RESP 18; TEMP 98
[2021-12-21 08:37] VITALS: BP 104/55
[2021-12-21] MEDS: ASPIRIN 81 MG CHEWABLE TABLETS PO SCH (09:30)
[2021-12-21] MEDS: ENOXAPARIN NA (PORCINE) 60 MG/0.6 ML DISP.SYRIN SQ SCH (09:30)
[2021-12-21] MEDS: METOPROLOL TARTRATE 50 MG TABLET (FP) PO SCH (09:30)
[2021-12-21] MEDS: predniSONE 20 MG TABLET (UD) PO SCH (09:30)
[2021-12-21] MEDS: FAMOTIDINE 20 MG TABLET PO SCH (09:30)
== END 2021-12-21 11:21 | disposition home health service (06) | DRG 196 ==
LOC: JER 18:18 → JERBED 23:49 → J4W 12-13 07:50
PROVIDERS: ADMIT Internal Medicine; ATTEND Internal Medicine
DX: J84.9 Interstitial pulmonary disease, unspecified (principal); J18.9 Pneumonia, unspecified organism; J47.1 Bronchiectasis with (acute) exacerbation; I25.10 Atherosclerotic heart disease of native coronary artery without angina pectoris; E78.5 Hyperlipidemia, unspecified; I25.2 Old myocardial infarction; I12.9 Hypertensive chronic kidney disease with stage 1 through stage 4 chronic kidney disease, or unspecified chronic kidney disease; M06.9 Rheumatoid arthritis, unspecified; I48.0 Paroxysmal atrial fibrillation; N18.30 Chronic kidney disease, stage 3 unspecified; D63.8 Anemia in other chronic diseases classified elsewhere; E87.5 Hyperkalemia; I27.20 Pulmonary hypertension, unspecified
CPT/HCPCS: 36415; 71045-TC-FY; 71250-TC; 80053; 81003; 82306; 82310; 82550; 82784; 82803; 83605; 83615; 83880; 83883; 83970; 84439; 84443; 84445; 84481; 84484; 85025; 85379; 85610; 85730; 86359; 86360; 86376; 86480; 86682; 86850; 86900; 86901; 87040; 87086; 87389; 87449; 87536; 88300-TC; 93005; 93010; 93306-TC; 93970-TC; 94640; 94761; 99285-25; C9803-CS; J1644; U0003; U0005

== ENCOUNTER 2022-01-13 11:15 | Inpatient (IN) | payer OTHER ==
[2022-01-13 13:49] LABS: HEMATOCRIT 40.1 % (32.4-45.2); HEMOGLOBIN 12.5 GM/dL (10.7-15.3); MCH 32.1 pg (25.7-33.7); MCHC 31.3 g/dl (32.0-36.0); MEAN CELL VOLUME 102.6 fl (80-96); MEAN PLT VOLUME 8.5 fl (7.5-11.1); PLATELET COUNT 209 10^3/uL (134-434); RDW 20.6 % (11.6-15.6); WHITE BLOOD COUNT 9.8 K/mm3 (4.0-10.0)
[2022-01-13 13:57] LABS: INR 1.21 (0.83-1.09)
[2022-01-13 13:59] LABS: ACTIVATED PTT 23.5 SECONDS (25.2-36.5)
[2022-01-13 14:01] LABS: VENOUS O2 SATURATION 35.5 % (70-80); VENOUS PCO2 52.4 mmHg (38-52); VENOUS PH 7.327 (7.310-7.410)
[2022-01-13 14:02] LABS: URINE APPEARANCE CLEAR; URINE BILIRUBIN NEGATIVE (NEGATIVE); URINE COLOR YELLOW; URINE GLUCOSE (UA) NEGATIVE (NEGATIVE); URINE KETONE NEGATIVE (NEGATIVE); URINE LEUK ESTERASE NEGATIVE (NEGATIVE); URINE NITRITE NEGATIVE (NEGATIVE); URINE PROTEIN TRACE (NEGATIVE); URINE UROBILINOGEN 0.2 mg/dL (0.2-1.0)
[2022-01-13 14:15] LABS: ALBUMIN 2.7 g/dl (3.4-5.0); BLOOD UREA NITROGEN 38.2 mg/dL (7-18); CALCIUM 8.7 mg/dL (8.5-10.1); MAGNESIUM 1.9 mg/dL (1.8-2.4)
[2022-01-13 14:17] LABS: CREATININE 1.7 mg/dL (0.55-1.3); PHOSPHOROUS 3.4 mg/dL (2.5-4.9)
[2022-01-13 14:20] LABS: BILIRUBIN,TOTAL 1.1 mg/dL (0.2-1); TOT PROT 5.8 g/dl (6.4-8.2)
[2022-01-13 14:22] LABS: N-TERMINAL BNP 2106.6 pg/ml (5-125)
[2022-01-13] MEDS ORDERED: FUROSEMIDE 40 MG/4 ML INJECTABLE VIAL IVPUSH ONE (14:51)
[2022-01-13] MEDS ORDERED: AZITHROMYCIN IVPB 500 MG in DEXTROSE 5%-WATER - 250 ML IVPB ONE (14:52)
[2022-01-13] MEDS ORDERED: CEFTRIAXONE 1 GM in DEXTROSE 5%-WATER - 100 ML IVPB ONE (14:52)
[2022-01-13] MEDS ORDERED: FUROSEMIDE 40 MG/4 ML INJECTABLE VIAL ONE (15:40)
[2022-01-13] MEDS ORDERED: CEFTRIAXONE 1 GM/50 ML BAG ONE (15:40)
[2022-01-13] MEDS ORDERED: AZITHROMYCIN IVPB 500 MG/250 ML BAG IVPB ONE (15:40)
[2022-01-13 15:51] LABS: ANISOCYTOSIS 1+; MACROCYTOSIS 0; OVALOCYTE 1+; TEAR DROP CELLS 1+
[2022-01-13] MEDS: METOPROLOL TARTRATE 50 MG TABLET (FP) PO SCH (22:25)
[2022-01-13] MEDS: ROSUVASTATIN CA 20 MG TABLET PO SCH (22:25)
[2022-01-13] MEDS: APIXABAN 5 MG TABLET PO SCH (22:27)
[2022-01-14] MEDS ORDERED: FUROSEMIDE 40 MG/4 ML INJECTABLE VIAL IVPUSH ONE (06:00)
[2022-01-14 07:45] LABS: BASO % 0.1 % (0-2.0); HEMATOCRIT 38.2 % (32.4-45.2); HEMOGLOBIN 12.2 GM/dL (10.7-15.3); LYMPH % 13.8 % (8-40); MCH 32.1 pg (25.7-33.7); MEAN CELL VOLUME 100.4 fl (80-96); MEAN PLT VOLUME 8.5 fl (7.5-11.1); MONO % 11.4 % (3.8-10.2); NEUT % 73.7 % (42.8-82.8); PLATELET COUNT 187 10^3/uL (134-434); RBC 3.81 M/mm3 (3.60-5.2); RDW 19.9 % (11.6-15.6); WHITE BLOOD COUNT 7.8 K/mm3 (4.0-10.0)
[2022-01-14 07:59] LABS: CALCIUM 8.8 mg/dL (8.5-10.1)
[2022-01-14 08:01] LABS: ALBUMIN 2.6 g/dl (3.4-5.0); BLOOD UREA NITROGEN 38.4 mg/dL (7-18); MAGNESIUM 2.1 mg/dL (1.8-2.4)
[2022-01-14 08:04] LABS: BILIRUBIN,TOTAL 0.8 mg/dL (0.2-1); CREATININE 1.6 mg/dL (0.55-1.3); PHOSPHOROUS 4.5 mg/dL (2.5-4.9); TOT PROT 5.5 g/dl (6.4-8.2)
[2022-01-14] MEDS: METOPROLOL TARTRATE 50 MG TABLET (FP) PO SCH ×2 (09:39→21:31)
[2022-01-14] MEDS: APIXABAN 5 MG TABLET PO SCH ×2 (09:39→21:31)
[2022-01-14] MEDS ORDERED: ENOXAPARIN NA (PORCINE) 40 MG/0.4 ML DISP.SYRIN SQ SCH (10:00)
[2022-01-14] MEDS ORDERED: ACETAMINOPHEN 1000 MG/100 ML BAG IVPB ONE (15:50)
[2022-01-14 19:35] VITALS: BMI 26.2
[2022-01-14] MEDS: ROSUVASTATIN CA 20 MG TABLET PO SCH (21:31)
[2022-01-15] MEDS: APIXABAN 5 MG TABLET PO SCH ×2 (09:24→22:15)
[2022-01-15] MEDS: METOPROLOL TARTRATE 50 MG TABLET (FP) PO SCH ×2 (09:24→22:15)
[2022-01-15 09:38] LABS: BASO % 0.3 % (0-2.0); EOS % 2.2 % (0-4.5); HEMATOCRIT 40.8 % (32.4-45.2); HEMOGLOBIN 13.1 GM/dL (10.7-15.3); LYMPH % 13.5 % (8-40); MCH 32.8 pg (25.7-33.7); MCHC 32.2 g/dl (32.0-36.0); MEAN CELL VOLUME 101.9 fl (80-96); MEAN PLT VOLUME 7.4 fl (7.5-11.1); MONO % 10.2 % (3.8-10.2); NEUT % 73.8 % (42.8-82.8); PLATELET COUNT 145 10^3/uL (134-434); RBC 4.01 M/mm3 (3.60-5.2); RDW 19.7 % (11.6-15.6); WHITE BLOOD COUNT 6.8 K/mm3 (4.0-10.0)
[2022-01-15 10:14] LABS: ALBUMIN 2.6 g/dl (3.4-5.0); BLOOD UREA NITROGEN 41.2 mg/dL (7-18); CALCIUM 8.6 mg/dL (8.5-10.1)
[2022-01-15 10:17] LABS: CREATININE 1.7 mg/dL (0.55-1.3); PHOSPHOROUS 3.9 mg/dL (2.5-4.9)
[2022-01-15 10:18] LABS: BILIRUBIN,TOTAL 1.2 mg/dL (0.2-1); TOT PROT 5.2 g/dl (6.4-8.2)
[2022-01-15] MEDS ORDERED: ACETAMINOPHEN 1000 MG/100 ML BAG IVPB ONE (14:51)
[2022-01-15] MEDS ORDERED: ACETAMINOPHEN PO PRN (15:46)
[2022-01-15] MEDS: ROSUVASTATIN CA 20 MG TABLET PO SCH (22:15)
[2022-01-15] MEDS: ACETAMINOPHEN 325 MG TABLET (FP) PO PRN (22:15)
[2022-01-16 07:45] LABS: CALCIUM 8.5 mg/dL (8.5-10.1)
[2022-01-16 07:46] LABS: BLOOD UREA NITROGEN 42.5 mg/dL (7-18)
[2022-01-16 07:48] LABS: BASO % 0.3 % (0-2.0); EOS % 2.2 % (0-4.5); HEMATOCRIT 38.9 % (32.4-45.2); HEMOGLOBIN 12.4 GM/dL (10.7-15.3); LYMPH % 12.5 % (8-40); MCH 32.2 pg (25.7-33.7); MCHC 31.8 g/dl (32.0-36.0); MEAN CELL VOLUME 101.1 fl (80-96); MEAN PLT VOLUME 8.4 fl (7.5-11.1); MONO % 10.4 % (3.8-10.2); NEUT % 74.6 % (42.8-82.8); PLATELET COUNT 162 10^3/uL (134-434); RBC 3.85 M/mm3 (3.60-5.2); RDW 20.2 % (11.6-15.6); WHITE BLOOD COUNT 6.3 K/mm3 (4.0-10.0)
[2022-01-16 07:49] LABS: CREATININE 1.6 mg/dL (0.55-1.3)
[2022-01-16] MEDS: APIXABAN 5 MG TABLET PO SCH ×2 (09:04→22:35)
[2022-01-16] MEDS: METOPROLOL TARTRATE 50 MG TABLET (FP) PO SCH ×2 (09:04→22:35)
[2022-01-16] MEDS: ACETAMINOPHEN 325 MG TABLET (FP) PO PRN (18:46)
[2022-01-16] MEDS: ROSUVASTATIN CA 20 MG TABLET PO SCH (22:35)
[2022-01-17 07:48] LABS: BASO % 0.4 % (0-2.0); EOS % 1.7 % (0-4.5); HEMATOCRIT 38.5 % (32.4-45.2); HEMOGLOBIN 12.3 GM/dL (10.7-15.3); LYMPH % 12.8 % (8-40); MCH 32.4 pg (25.7-33.7); MEAN CELL VOLUME 101.3 fl (80-96); MEAN PLT VOLUME 8.5 fl (7.5-11.1); MONO % 9.5 % (3.8-10.2); NEUT % 75.6 % (42.8-82.8); PLATELET COUNT 152 10^3/uL (134-434); RDW 19.8 % (11.6-15.6); WHITE BLOOD COUNT 5.5 K/mm3 (4.0-10.0)
[2022-01-17 08:12] LABS: ALBUMIN 2.4 g/dl (3.4-5.0); BLOOD UREA NITROGEN 34.7 mg/dL (7-18); CALCIUM 8.2 mg/dL (8.5-10.1)
[2022-01-17 08:15] LABS: CREATININE 1.6 mg/dL (0.55-1.3)
[2022-01-17 08:17] LABS: BILIRUBIN,TOTAL 1.2 mg/dL (0.2-1); TOT PROT 5.4 g/dl (6.4-8.2)
[2022-01-17] MEDS: APIXABAN 5 MG TABLET PO SCH (10:05)
[2022-01-17] MEDS: METOPROLOL TARTRATE 50 MG TABLET (FP) PO SCH (10:10)
[2022-01-17] MEDS ORDERED: LIDOCAINE HCL 1%, 10 MG/ML (20ML VIAL) ONE (13:54)
[2022-01-17] MEDS ORDERED: HEPARIN NA (PORCINE) 5,000 UNITS/ML 1ML VIAL ONE (13:54)
[2022-01-17] MEDS ORDERED: ceFAZolin SODIUM 1 GM VIAL IVPB ONE (15:20)
[2022-01-17] MEDS ORDERED: LIDOCAINE HCL 1%, 10 MG/ML (20ML VIAL) NR ONE (15:30)
[2022-01-18 07:38] LABS: BASO % 0.6 % (0-2.0); EOS % 1.1 % (0-4.5); HEMATOCRIT 38.3 % (32.4-45.2); HEMOGLOBIN 12.4 GM/dL (10.7-15.3); MCH 32.7 pg (25.7-33.7); MCHC 32.5 g/dl (32.0-36.0); MEAN CELL VOLUME 100.8 fl (80-96); MEAN PLT VOLUME 8.6 fl (7.5-11.1); MONO % 11.1 % (3.8-10.2); NEUT % 71.2 % (42.8-82.8); PLATELET COUNT 152 10^3/uL (134-434); RDW 19.4 % (11.6-15.6); WHITE BLOOD COUNT 4.8 K/mm3 (4.0-10.0)
[2022-01-18 07:55] LABS: CALCIUM 8.5 mg/dL (8.5-10.1)
[2022-01-18 07:56] LABS: ALBUMIN 2.4 g/dl (3.4-5.0); BLOOD UREA NITROGEN 30.2 mg/dL (7-18)
[2022-01-18 07:59] LABS: CREATININE 1.6 mg/dL (0.55-1.3)
[2022-01-18 08:00] LABS: BILIRUBIN,TOTAL 1.1 mg/dL (0.2-1)
[2022-01-18 08:01] LABS: TOT PROT 5.4 g/dl (6.4-8.2)
[2022-01-18] MEDS ORDERED: ACETAMINOPHEN 325 MG TABLET (FP) PO PRN (09:17)
[2022-01-18] MEDS: FAMOTIDINE 20 MG TABLET PO SCH (09:57)
[2022-01-18] MEDS: METOPROLOL TARTRATE 50 MG TABLET (FP) PO SCH ×2 (09:57→23:18)
[2022-01-18] MEDS: APIXABAN 5 MG TABLET PO SCH ×2 (09:57→23:18)
[2022-01-18] MEDS: ROSUVASTATIN CA 20 MG TABLET PO SCH (23:18)
[2022-01-19 08:12] LABS: BASO % 0.7 % (0-2.0); EOS % 1.2 % (0-4.5); HEMATOCRIT 36.9 % (32.4-45.2); LYMPH % 19.9 % (8-40); MCH 33.1 pg (25.7-33.7); MCHC 32.5 g/dl (32.0-36.0); MEAN CELL VOLUME 101.7 fl (80-96); MEAN PLT VOLUME 8.1 fl (7.5-11.1); MONO % 14.6 % (3.8-10.2); NEUT % 63.6 % (42.8-82.8); PLATELET COUNT 147 10^3/uL (134-434); RBC 3.63 M/mm3 (3.60-5.2); RDW 19.1 % (11.6-15.6); WHITE BLOOD COUNT 4.6 K/mm3 (4.0-10.0)
[2022-01-19 08:44] LABS: BLOOD UREA NITROGEN 30.3 mg/dL (7-18); CALCIUM 8.4 mg/dL (8.5-10.1); CREATININE 1.6 mg/dL (0.55-1.3)
[2022-01-19] MEDS: METOPROLOL TARTRATE 50 MG TABLET (FP) PO SCH ×2 (09:17→21:22)
[2022-01-19] MEDS: FOLIC ACID 1 MG TABLET (FP) PO SCH (09:22)
[2022-01-19] MEDS: APIXABAN 5 MG TABLET PO SCH ×2 (09:22→21:22)
[2022-01-19] MEDS: FAMOTIDINE 20 MG TABLET PO SCH (09:22)
[2022-01-19] MEDS: ROSUVASTATIN CA 20 MG TABLET PO SCH (21:22)
[2022-01-20 07:56] LABS: BASO % 0.5 % (0-2.0); EOS % 0.9 % (0-4.5); HEMATOCRIT 34.9 % (32.4-45.2); HEMOGLOBIN 11.5 GM/dL (10.7-15.3); MCH 33.2 pg (25.7-33.7); MEAN CELL VOLUME 100.8 fl (80-96); MEAN PLT VOLUME 8.2 fl (7.5-11.1); MONO % 12.1 % (3.8-10.2); NEUT % 71.5 % (42.8-82.8); PLATELET COUNT 151 10^3/uL (134-434); RBC 3.46 M/mm3 (3.60-5.2); RDW 18.7 % (11.6-15.6); WHITE BLOOD COUNT 5.7 K/mm3 (4.0-10.0)
[2022-01-20 08:37] LABS: CALCIUM 8.4 mg/dL (8.5-10.1)
[2022-01-20 08:38] LABS: BLOOD UREA NITROGEN 30.7 mg/dL (7-18)
[2022-01-20 08:39] LABS: CREATININE 1.5 mg/dL (0.55-1.3)
[2022-01-20] MEDS: FAMOTIDINE 20 MG TABLET PO SCH (10:10)
[2022-01-20] MEDS: FOLIC ACID 1 MG TABLET (FP) PO SCH (10:10)
[2022-01-20] MEDS: APIXABAN 5 MG TABLET PO SCH ×2 (10:10→22:37)
[2022-01-20] MEDS: METOPROLOL TARTRATE 50 MG TABLET (FP) PO SCH (10:10)
[2022-01-20 16:16] VITALS: RESP 18
[2022-01-20] MEDS: ROSUVASTATIN CA 20 MG TABLET PO SCH (22:37)
[2022-01-20] MEDS: METOPROLOL TARTRATE 25 MG TABLET (FP) PO SCH (22:37)
[2022-01-21 09:38] VITALS: BP 115/72; PULSE 94; TEMP 98
[2022-01-21] MEDS ORDERED: predniSONE 20 MG TABLET (UD) PO SCH (10:00)
[2022-01-21] MEDS: FOLIC ACID 1 MG TABLET (FP) PO SCH (10:02)
[2022-01-21] MEDS: METOPROLOL TARTRATE 25 MG TABLET (FP) PO SCH (10:02)
[2022-01-21] MEDS: APIXABAN 5 MG TABLET PO SCH (10:02)
[2022-01-21] MEDS: FAMOTIDINE 20 MG TABLET PO SCH (10:02)
[2022-01-21] MEDS ORDERED: PATIENT'S OWN MEDICATION (NON-FORMULARY) (Metoprolol Tartrate [Lopressor] 100 MG Tablet) PO SCH (22:00)
[2022-01-21] MEDS ORDERED: ROSUVASTATIN CA 20 MG TABLET PO SCH (22:00)
[2022-01-22] MEDS ORDERED: FOLIC ACID 1 MG TABLET (FP) PO SCH (10:00)
[2022-01-22] MEDS ORDERED: amLODIPine BESYLATE 5 MG TABLET (FP) PO SCH (10:00)
[2022-01-22] MEDS ORDERED: predniSONE 20 MG TABLET (UD) PO SCH (10:00)
[2022-01-25] MEDS ORDERED: ERGOCALCIFEROL (VIT D2) 50,000 UNIT (1.25 MG) CAPSULE PO SCH (10:00)
== END 2022-01-21 12:39 | disposition home or self-care (01) | DRG 253 ==
LOC: JER 11:15 → JERBED 14:45 → J4W 21:42
PROVIDERS: ADMIT Internal Medicine; ATTEND Specialist
PROC: 3E03317 Introduction of Other Thrombolytic into Peripheral Vein, Percutaneous Approach (ICD-10-PCS; 2022-01-17)
PROC: B517ZZZ Fluoroscopy of Left Subclavian Vein (ICD-10-PCS; 2022-01-17)
PROC: 037 Upper Arteries, Dilation (ICD-10-PCS; principal; 2022-01-17 15:00)
DX: T82.858A Stenosis of other vascular prosthetic devices, implants and grafts, initial encounter (principal); I87.1 Compression of vein; J84.9 Interstitial pulmonary disease, unspecified; I12.9 Hypertensive chronic kidney disease with stage 1 through stage 4 chronic kidney disease, or unspecified chronic kidney disease; N18.30 Chronic kidney disease, stage 3 unspecified; E78.5 Hyperlipidemia, unspecified; I25.10 Atherosclerotic heart disease of native coronary artery without angina pectoris; Y83.9 Surgical procedure, unspecified as the cause of abnormal reaction of the patient, or of later complication, without mention of misadventure at the time of the procedure; Z98.61 Coronary angioplasty status; Z95.1 Presence of aortocoronary bypass graft; E87.5 Hyperkalemia; M06.9 Rheumatoid arthritis, unspecified; N63.0 Unspecified lump in unspecified breast
CPT/HCPCS: 0241U-QW; 36415; 71045-TC-FY; 71250-TC; 76000-TC-FY; 76641-TC-LT; 76705-TC; 80048; 80053; 81003; 82607; 82746; 82803; 83735; 83880; 84100; 84132; 84436; 84439; 84443; 84484; 85025; 85610; 85651; 85730; 86140; 87086; 93005; 93010; 93971; 94760; 99285-25; J1644

== ENCOUNTER 2022-02-16 15:26 | Emergency (ER) | payer OTHER ==
[2022-02-16 15:33] VITALS: BP 108/64; PULSE 84; RESP 18; TEMP 97.7; BMI 23.6
[2022-02-16 18:34] LABS: BASO % 0.8 % (0-2.0); EOS % 4.7 % (0-4.5); HEMOGLOBIN 12.9 GM/dL (10.7-15.3); LYMPH % 14.3 % (8-40); MCH 31.4 pg (25.7-33.7); MEAN CELL VOLUME 94.9 fl (80-96); MEAN PLT VOLUME 8.7 fl (7.5-11.1); MONO % 12.4 % (3.8-10.2); NEUT % 67.8 % (42.8-82.8); PLATELET COUNT 483 10^3/uL (134-434); RBC 4.11 M/mm3 (3.60-5.2); RDW 17.9 % (11.6-15.6); WHITE BLOOD COUNT 9.2 K/mm3 (4.0-10.0)
[2022-02-16 18:52] LABS: CHLORIDE 105 mmol/L (98-107); SODIUM 136 mmol/L (136-145)
[2022-02-16 18:56] LABS: ALBUMIN 2.3 g/dl (3.4-5.0); BLOOD UREA NITROGEN 32.6 mg/dL (7-18); CALCIUM 10.2 mg/dL (8.5-10.1); CO2 24 mmol/L (21-32); GLUCOSE,RANDOM 87 mg/dL (74-106)
[2022-02-16 19:00] LABS: BILIRUBIN,TOTAL 0.6 mg/dL (0.2-1); CHOLESTEROL 120 mg/dL (50-200); CREATININE 2.7 mg/dL (0.55-1.3); LDL CHOLESTEROL (ONLY SJRH) 73 mg/dL (5-100); SGOT/AST 96 U/L (15-37); TOT PROT 8.7 g/dl (6.4-8.2); TRIGLYCERIDES 142 mg/dL (0-150)
[2022-02-16 19:02] LABS: ALK PHOS 86 U/L (45-117); HDL CHOLESTEROL 34 mg/dL (40-60); N-TERMINAL BNP 974.6 pg/ml (5-125)
[2022-02-16 19:24] LABS: ERYTHROCYTE SEDIMENTATION RATE 75 mm/hr (0-30)
[2022-02-16] MEDS ORDERED: ACETAMINOPHEN 500 MG TABLET (FP) ONE (19:25)
[2022-02-16] MEDS: ACETAMINOPHEN 500 MG TABLET (FP) PO ONE ×2 (19:25→19:30)
[2022-02-16] MEDS ORDERED: METOCLOPRAMIDE HCL INJECTION 10 MG/2 ML VIAL IVPUSH ONE (20:00)
[2022-02-16 20:22] LABS: ANION GAP 7 MMOL/L (8-16); SGPT/ALT 26 U/L (13-61)
[2022-02-16 22:26] LABS: HIV INTERPRETATION PRESUMPTIVE POSITIVE (NEGATIVE)
== END 2022-02-16 20:10 | disposition left against medical advice (07) ==
LOC: JER 15:26
PROC: 3E033GC Introduction of Other Therapeutic Substance into Peripheral Vein, Percutaneous Approach (ICD-10-PCS; principal; 2022-02-16)
DX: N18.30 Chronic kidney disease, stage 3 unspecified (principal)
CPT/HCPCS: 36415; 71046-TC-FY; 80053; 80061; 82550; 82553; 83880; 84443; 84484; 85025; 85651; 86140; 87389; 99284-25; C9803-CS; U0003; U0005